=== PATIENT | male | born 1950 | race Caucasian/White ===

== ENCOUNTER 2020-10-03 13:21 | Outpatient (CLI) | payer MEDICARE, SELFPAY ==
--- NOTE | 2020-10-03 | DI.RAD_ITS ---
Exam(s) XR CHEST 2V PA LATERAL EXAM: XR CHEST 2V PA LATERAL CLINICAL HISTORY: COUGH, R05. TECHNIQUE: 2D digital imaging was performed. COMPARISON: No exams were available for comparison FINDINGS: Heart size is normal. The mediastinum is not widened. There is bilateral hyperinflation Lungs are clear. No infiltrates nor pleural effusions. IMPRESSION: Hyperinflation but no acute pulmonary findings. No pleural effusions. DATA REPOSITORY: RADIATION DOSE DELIVERED:
== END 2020-10-03 13:41 ==
PROVIDERS: Visit Provider Physician Assistant Medical
DX: R91.8 Other nonspecific abnormal finding of lung field (principal)
CPT/HCPCS: 71046

== ENCOUNTER 2020-10-03 14:18 | Outpatient (REF) | payer MEDICARE, SELFPAY ==
[2020-10-04 15:23] LABS: COVID-19 RT-PCR UVMMC Result Negative (Negative)
== END 2020-10-03 14:19 | disposition home or self-care (01) ==
LOC: LBN 14:18
PROVIDERS: Visit Provider Physician Assistant Medical
DX: Z20.822 Contact with and (suspected) exposure to COVID-19 (principal); J06.9 Acute upper respiratory infection, unspecified
CPT/HCPCS: U0003; U0005

== ENCOUNTER 2020-10-29 21:29 | Inpatient (IN) | payer MEDICARE, SELFPAY ==
--- NOTE | 2020-10-29 21:24 | HPE_ITS ---
Date of service: 10/29/20 Time of Service: 21:24 Assessment and Plan Assessment and plan (1) COPD exacerbation: Start date: 10/29/20 Status: Acute Assessment and plan: This is a 70-year-old gentleman chronically on oxygen at home and chronic respiratory failure well compensated presenting with increasing dyspnea and feeling tight with continued tobacco use at home. He was not clearing well enough during his evaluation [facility] [place] [facility] ED and was transferred for observation overnight for continued IV steroids with patient chronically on prednisone daily and more aggressive respiratory treatment. Imaging did not reveal infiltrate. He did not have a fever or elevated WBC. He was placed on doxycycline for possible bronchitis. He is a full code. (2) Hypoxemia: Status: Chronic Assessment and plan: Patient is chronically on O2 low levels with hypercapnia and chronic respiratory failure as stated well comfortable at this time. Continue oxygen supplement at lowest level needed to maintain pulse oximeter above 89%. (3) Chronic respiratory failure with hypercapnia: Status: Chronic Assessment and plan: Well compensated with normal pH but elevated PCO2. Patient's mentation is normal and this is probably his baseline. He does not use positive pressure treatment at home. (4) BPH without obstruction/lower urinary tract symptoms: Status: Chronic Assessment and plan: Continue outpatient medications and straight cath if postvoid residual is greater than 400 cc by bladder scan. (5) Tobacco use disorder: Status: Chronic Assessment and plan: Long-term patient needs to stop tobacco use and nicotine supplement resolved mostly as needed. History of Present Illness History of Present Illness Chief Complaint: Dyspnea Narrative: This is a 70-year-old gentleman who was seen in the [facility] ED with worsening hypoxemia and shortness of breath with cough which was productive of sputum without change in color. He had no fever or elevated WBC but did not respond well to nebulizer treatments and continued to be dyspneic beyond his baseline warranting observation with no available bed at that facility and being transferred to [facility] for observation. The patient does have bladder outlet obstruction as a chronic problem and is on Eliquis chronically for protein C deficiency since he was 20 years of age. He has a history of DVT. He does have peripheral edema at times and is on diuretics. He also continues to smoke tobacco. He has intermittently on steroids and appears to be on chronic steroid treatment as. He does see pulmonology. Upon presentation he had no fever or change in sputum as mentioned. He had no chest pain or chest pressure. His peripheral edema appears stable. 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 He is chronically on O2 at home. His does work 4 days a week and he does have some need for increased care at home which can be addressed with his primary care. Also with bladder outlet obstruction follow-up with urology near his PCP. Review of Systems Narrative: 13 point review of systems otherwise unrevealing or stable patient chronically ill and chronically having respiratory failure on O2 supplement. He has had no change in mentation. [facility] Medical History (Updated 10/30/20 @ 11:09 by Josh Stephenson) Abdominal pain Blood coagulation disorder BPH without obstruction/lower urinary tract symptoms Chest pain Chronic respiratory failure with hypercapnia Closed fracture of middle and/or proximal phalanx of finger COPD (chronic obstructive pulmonary disease) COPD (chronic obstructive pulmonary disease) with emphysema Depressive disorder Epigastric pain High cholesterol Hypoxemia Impotence Localized edema Low back pain Ophthalmic herpes simplex Pain in joint of left shoulder Tobacco use disorder Social History Smoking/Tobacco Use Status: Former Tobacco Use Quit Date: 10/26/20 Tobacco: How many years used: 50 Smoking risk assessment performed?: Yes Alcohol Intake: current Alcohol Intake frequency: holidays/special occasions only Alcohol type: beer and hard liquor Drug use: Daily Substance use type: marijuana Details: pt states I try to do it once a day but I haven't been able to lately. Do you feel safe at home: Yes Do you feel safe in your relationship?: Yes Meds Allergies and Home Medications Allergies Allergy/AdvReac Type Severity Reaction Status Date / Time No Known Allergies Allergy Unverified 10/29/20 22:55 Home Medications Medication Instructions Recorded Confirmed Type albuterol sulfate 2 puff INHALATION DIRECTED PRN 10/30/20 10/30/20 History apixaban [Eliquis] 5 mg PO BID 10/30/20 10/30/20 History apixaban [Eliquis] 5 mg PO BID 10/30/20 10/30/20 History budesonide-formoterol [Symbicort] 2 puff INHALATION BID 10/30/20 10/30/20 History clonazepam [Klonopin] 0.5 mg PO DIRECTED PRN 10/30/20 10/30/20 History clonazepam [Klonopin] 1 mg PO DIRECTED PRN 10/30/20 10/30/20 History furosemide [Lasix] 40 mg PO DAILY 10/30/20 10/30/20 History ipratropium-albuterol 3 ml INHALATION QID 10/30/20 10/30/20 History nicotine (polacrilex) 4 mg BUCCAL DIRECTED PRN 10/30/20 10/30/20 History prednisone 10 mg PO DIRECTED 10/30/20 10/30/20 History tamsulosin 0.4 mg PO DAILY 10/30/20 10/30/20 History terazosin 4 mg PO QHS 10/30/20 10/30/20 History Exam Narrative Exam Narrative: General: Patient appears older than stated age, thin but not cachectic and in no acute distress. Is alert and oriented at least to person and place. HEENT: Normocephalic, coarsened facial features, eyes with pupils equal and reactive light symmetrically, extraocular movement intact and sclera anicteric. Neck: Supple without JVD. Back: Stooped posture with no CVA tenderness. Lungs: Decreased aeration diffusely with poor inspiratory air movement and prolonged expiratory phase with expiratory wheeze diffusely. No focalizing expiratory rales. No rhonchi. Heart: Regular rate and rhythm with no appreciable murmur gallop. Abdomen: Normal contour, soft nontender to palpation with no palpable hepatosplenomegaly. Bowel sounds positive in all quadrants. Genitalia/rectal: Exam deferred. Extremities: Without clubbing, pitting edema or cyanosis. Peripheral pulses intact. Skin: Pale, warm and dry with normal turgor. Neuro: Cranial nerves II to XII gross intact, no focalizing motor deficits. Psych: Slightly flattened affect but normal mood. No abnormal thought process. Remote and recent memory intact. Results Imaging Additional studies: Troponin negative, BNP normal and lactic acid normal VENOUS PH 7.36 - PCO2 79 critical high TCO2, VENOUS 47 critical high BASE 15.3 WBC 6.0 - RBC 4.18 low HGB 13.7 low HCT 42.2 - MCV 101.0 high MCH 32.8 high MCHC 32.5 - RDW 13.0 - PLT 128 low G/R 99 - BUN 19 - CREA 0.80 - CA 9.2 - NA 140 - K 4.3 - CL 94 low TCO2 >40.0 critical high Imaging Studies: Exam: XR Chest Exam date and time: 10/29/2020 6:52 PM Age: 70 years old Clinical indication: SOB TECHNIQUE: Imaging protocol: XR of the chest. Views: 2 views. COMPARISON: CR XR CHEST 2VW (D) 07/24/2020 10:44 AM FINDINGS: Lungs: Hyperinflated hyperlucent lungs. No infiltrates. Pleural spaces: Unremarkable. No pleural effusion. No pneumothorax. Heart/Mediastinum: Unremarkable. No cardiomegaly. Bones/joints: No aggressive osseous lesions identified. IMPRESSION: No infiltrates or effusions. The lungs are hyperinflated and hyperlucent, likely emphysema. Labs Result diagrams: 10/30/20 07:29 10/30/20 07:29
[2020-10-29 21:52] LABS: Source Nasal/Nares
[2020-10-29 22:09] VITALS: BP 102/61; PULSE 96; RESP 28; TEMP 37.4; O2SAT 98
[2020-10-29 22:45] LABS: COVID-19 PCR Negative (Negative)
[2020-10-30] VITALS (11 sets, daily range): BP systolic 100–121; BP diastolic 54–68; PULSE 75–96; RESP 4–20; TEMP 36.6–37.5; O2SAT 94–99
[2020-10-30] MEDS: Albuterol/Ipratropium 3 ML UPD VIAL UPD ×4 (00:26→22:36)
[2020-10-30] MEDS: methylPREDNISolone SUCC 125 MG VIAL IVP ×4 (00:26→22:36)
[2020-10-30] MEDS: DOXYCYCLINE 100 MG in Normal Saline 100 ML IVPB ×3 (00:27→22:37)
[2020-10-30] MEDS: Normal Saline 500 ML 30 ML IV ×2 (00:43→22:38)
[2020-10-30] MEDS: Terazosin 2 MG CAP 4 MG PO ×2 (03:12→22:37)
[2020-10-30] MEDS: Normal Saline Flush 10 ML SYR IVP ×4 (06:33→22:37)
[2020-10-30 07:39] LABS: Abs Immature Grans 0.01 10^3/uL (0.0-0.06); Absolute Lymphocyte Count 0.14 10^3/uL (1.2-3.4); Absolute Monocyte Count 0.04 10^3/uL (0.1-0.8); Absolute Neutrophil Count 5.31 10^3/uL (1.2-6.7); HCT 37.8 % (40.0-50.0); HGB 12.5 g/dL (13.5-17.5); Immature Grans % 0.2; Lymphocytes % 2.5; MCH 32.5 pg (27.0-33.0); MCHC 33.1 % (32.0-36.0); MCV 98.2 fL (80-95); MPV 9.5 fL (8.0-11.0); Monocytes % 0.7; Neutrophils % 96.6; Nucleated RBC 0 %; Platelet Count 163 10^3/uL (130-400); RBC 3.85 10^6/uL (4.36-5.78); RDW 12.4 % (11.8-14.1); RDW-SD 44.5 fL
[2020-10-30 07:55] LABS: ALT 29 U/L (16-63); AST 11 U/L (15-37); Alkaline Phosphatase 44 U/L (46-116); BUN 18 mg/dL (7-18); Bilirubin, Total 0.5 mg/dL (0.2-1.0); CREATININE 0.7 mg/dL (0.70-1.30); Calcium 8.7 mg/dL (8.5-10.1); Chloride 103 mmol/L (98-107); Glucose 147 mg/dL (74-106); Potassium 4.3 mmol/L (3.5-5.1); Sodium 142 mmol/L (136-145); Total Protein 5.8 g/dL (6.4-8.2)
[2020-10-30] MEDS: Furosemide 40 MG TAB PO (08:15)
[2020-10-30] MEDS: Tamsulosin 0.4 MG CAPCR PO (08:16)
[2020-10-30] MEDS: Apixaban 5 MG TAB PO ×2 (08:16→19:47)
--- NOTE | 2020-10-30 09:40 | INITIAL_ITS ---
- If Service Date Differs Date of service: 10/30/20 Time of Service: 09:40 Care Management Initial Assess REASON FOR HOSPITALIZATION:: COPD exacerbation PAST MEDICAL HISTORY/PAST SURGICAL HISTORY:: Medical History (Updated 10/29/20 @ 21:29 by Josh Stephenson). Chronic respiratory failure with hypercapnia. COPD (chronic obstructive pulmonary disease) with emphysema. Hypoxemia PREVIOUS FUNCTIONAL STATUS/SOCIAL/FAMILY SUPPORTS:: Marc lives in a second floor apartment in [place], [place] with his Tracy. They have one child, a daughter, who lives locally and is supportive. 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 He is fairly independent with ADLs howebver he is limited by his oxygen needs. CURRENT FUNCTIONAL STATUS:: Marc was sitting up in bed when CM came to see hime. He was pleasant and agreeable to conversation. Marc shared that he is not able to get around too well because of his oxygen needs. He stated that sometimes he will sit and wait for an hour before he can muster up the energy to walk 10 feet to a different location. He does not currently use a walker but verbalized that he thought it might be helpful. CM also discussed advance directives with Marc. He asked CM for a blank copy which he may need assistance completeing, which CM will provide. ADVANCE DIRECTIVES:: none on file. requested and provided with a copy of [place] AD forms Has patient been provided with info about the portal/API?: Yes Did the patient sign up for the portal?: No CODE STATUS:: Full Code INSURANCE COVERAGE / FINANCIAL ISSUES:: Medicare CURRENT HOME/COMMUNITY SERVICES/EQUIPMENT:: home oxygen PRIMARY CARE PHYSICIAN:: PCP in [place] POTENTIAL DISCHARGE NEEDS:: Follow up with PCP and discharge plan of care PATIENT/FAMILY EDUCATION NEEDS:: Review of discharge instructions, medications, limitations, follow up plan,[facility] Me [employer] TRANSPORTATION:: via private vehicle with family PLAN:: Marc will likely return home with no new services. He will follow up with his community providers and plan of care and transport with family. CM will continue to support Marc and assess for discharge planning needs.
--- NOTE | 2020-10-30 11:59 | PGE_ITS ---
Date of Service Date of service: 10/30/20 Time of Service: 11:59 Assessment and Plan Assessment and plan (1) COPD exacerbation: Status: Acute Assessment and plan: doxycycline day 2/5 continue steroid, taper as able. on home O2, He is a full code. (2) Hypoxemia: Status: Chronic Assessment and plan: Patient is chronically on O2 low levels with hypercapnia and chronic respiratory failure as stated well comfortable at this time. Continue oxygen supplement at lowest level needed to maintain pulse oximeter above 89%. (3) Chronic respiratory failure with hypercapnia: Status: Chronic Assessment and plan: Well compensated with normal pH but elevated PCO2. Patient's mentation is normal and this is probably his baseline. He does not use positive pressure treatment at home. (4) BPH without obstruction/lower urinary tract symptoms: Status: Chronic Assessment and plan: Continue outpatient medications and straight cath if postvoid residual is greater than 400 cc by bladder scan. (5) Tobacco use disorder: Status: Chronic Assessment and plan: Long-term patient needs to stop tobacco use, refusing nicotine supplement (6) DVT prophylaxis: Status: Acute Assessment and plan: anticoagulated on apixaban (7) Discharge planning issues: Status: Acute Assessment and plan: case management following anticipate a discharge to home tomorrow. discussed with DR Church Subjective Subjective Patient reports: no new complaints, feels better, tolerating liquids well, tolerating a regular diet, voiding w/o difficulty and afebrile Interval history since last seen: reports no significant change in symptoms Exam Const General: cooperative (older appearing than stated age), disheveled, frail appearing and ill appearing chronically Nutritional Appearance: average body habitus Orientation: alert, awake and oriented x3 [facility] Head: normal to inspection, normocephalic and atraumatic Mouth: moist mucous membranes abnormal (dry, no exudates) Resp Effort & Inspection: normal respiratory effort Auscultation: diminished lung sounds and wheezes Cardio Rate: regular rate Rhythm: regular rhythm GI Inspection: normal to inspection Palpation: soft Auscultation: normal bowel sounds Skin General skin exam: no rashes or lesions noted Neuro General: patient alert, patient awake, patient oriented x3 and no focal motor deficits Extrem General: normal to inspection and no pedal edema Objective Last Vital Signs Temp 36.7 C 10/30/20 11:23 Pulse 84 10/30/20 11:23 Resp 19 10/30/20 11:23 BP 109/68 10/30/20 11:23 Pulse Ox 96 10/30/20 11:23 Laboratory Results - last 24 hr 10/29/20 10/30/20 10/30/20 21:45 07:29 07:29 WBC 5.50 RBC 3.85 L Hgb 12.5 L Hct 37.8 L MCV 98.2 H MCH 32.5 MCHC 33.1 RDW 12.4 Plt Count 163 MPV 9.5 Immature Gran % 0.2 Neutrophils % 96.6 Lymphocytes % 2.5 Monocytes % 0.7 Eosinophils % 0.0 Basophils % 0.0 Nucleated RBC % 0 Absolute Neutrophils 5.31 Absolute Lymphocytes 0.14 L Absolute Monocytes 0.04 L Absolute Eosinophils 0.00 Absolute Basophils 0.00 Sodium 142 Potassium 4.3 Chloride 103 Carbon Dioxide 37.0 H Anion Gap 2.0 L BUN 18 Creatinine 0.7 Estimated GFR/1.73 m2 >= 60.00 Glucose 147 H Calcium 8.7 Total Bilirubin 0.5 AST 11 L ALT 29 Alkaline Phosphatase 44 L Total Protein 5.8 L Albumin 3.0 L COVID-19 Source Nasal/Nares SARS-CoV-2 (PCR) Negative
--- NOTE | 2020-10-30 14:27 | IN_ITS ---
Date of service: 10/30/20 Time of Service: 13:50 PT Notes Visit Reasons: Exacerbation COPD, Hypoxemia, Chronic Resp failure Inpatient Physical Therapy Evaluation Date: 10/30/20 Referring Doctor: Tracy Peralta NP PT Orders: PT CONSULT: limited ability to ambulate Precautions: standard Patient Profile/Admitting Diagnosis: Patient admitted for medical management of COPD exacerbation. PT consult requested for assessment of mobility. PMHX: Abdominal pain Blood coagulation disorder BPH without obstruction/lower urinary tract symptoms Chest pain Chronic respiratory failure with hypercapnia Closed fracture of middle and/or proximal phalanx of finger COPD (chronic obstructive pulmonary disease) COPD (chronic obstructive pulmonary disease) with emphysema Depressive disorder Epigastric pain High cholesterol Hypoxemia Impotence Localized edema Low back pain Ophthalmic herpes simplex Pain in joint of left shoulder Tobacco use disorder Social History/Home Situation: Patient lives with his in a second floor apartment. and daughter are present at time of evaluation, and report that he struggles to manage the stairs in/out of home. He leaves the house only to grocery shop, where he uses a motorized cart. States that he walks only from his bed to his computer chair in the apartment, estimating about 10 feet. Generally uses a urinal throughout the day. Although he walks independently, he admits that he walks very little because of his breathing. Equipment Owned/DME: none Subjective: Patient states that he's feeling a little better. He's agreeable to PT consult. and daughter are present for evaluation and are supportive throughout. They deny history of falls. Objective: General Observation: Resting in bed with supplemental O2 via nasal cannula at 1LPM. Shortness of breath noted at rest, increased with all functional movements. Mental Status: A&Ox3. Pleasant and cooperative. Pain: denies Vital Signs: SaO2 at 94% at rest, and remaining in 90s with activity, despite severe KIRK. HR 92 at rest, increasing to 105 in standing position. ROM: Right Upper Extremity: WFL Left Upper Extremity: WFL Right Lower Extremity: WFL Left Lower Extremity: WFL Strength: Right Upper Extremity: Shoulder flexion 3/5 or greater. Biceps 4/5. Triceps 4- /5. Left Upper Extremity: Shoulder flexion 3/5 or greater. Biceps 4/5. Triceps 4-/5. Right Lower Extremity: Hip flexion 4/5. Quads 4/5. Ankle DF 4+/5. Left Lower Extremity:Hip flexion 4/5. Quads 4/5. Ankle DF 4+/5. Bed Mobility/Transfers: supine-sit: supervision sit-supine: supervision sit-stand: supervision stand-sit: supervision Gait: Unable due to severe KIRK upon standing (see treatment section below) Balance: Static Sitting: normal Dynamic Sitting: normal Static Standing: good Dynamic Standing: good Special Tests: Mobility Limitations Standardized Measure [facility] 6 clicks Basic Mobility Inpatient Short Form: Raw Score: 18 CMS Score: 47% deficit Informed Consent/Education: Patient instructed in purpose of PT consult and plan of care. Treatment: Today's session consisted of evaluation, followed by instruction in diaphragmatic breathing exercises. Patient was also educated on self-monitoring with modified ADRIAN scale, and was provided with paper copy to reference. He completed 30 seconds of seated marching with cues for breathing techniques, where he rates his breathing at 5 on the ADRIAN scale. He stands with CGA to toilet for 90 seconds, after which breathing is rated at 7 on ADRIAN (although SaO2 remains in mid-90s throughout). He demonstrates significantly increased KIRK at this time, and requires 2 minutes to recover. Deferred on further activity at this time, and patient was assisted back to bed, call botello in place. Assessment: Patient is a 70 year old male referred to physical therapy services with the diagnosis of COPD exacerbation. Patient presents with clinical signs and symptoms consistent with mobility deficits related to acute medical issues, in addition to chronic COPD. Although patient demonstrates relatively good balance and has no fall history, I suspect he'll benefit from use of rollator walker to maximize his functional ambulation and improve his participation in daily tasks at home. He currently limits activity due to fear of shortness of breath, and is no longer walking even to the bathroom. Will assess for safety with rollator tomorrow. He currently demonstrates the following impairment level findings: 1. Decreased UE/LE strength 2. Decreased activity tolerance 3. Fear avoidance behaviors Impairments are contributing to the following functional limitations: 1. Unable to ambulate household distances 2. unable to manage stairs 3. unable to transfer without severe KIRK Patient is assessed as Moderate [id number] complexity based on the following: History: 70 year old male with COPD exacerbation. Complicating factors include ongoing tobacco use, multiple stairs at home, fear avoidance behaviors, and extensive medical history as noted above. Examination: functional limitations as noted above Presentation: evolving Decision Making: moderate complexity Goals: Goals X1 week 1. Supine-Sit : independent 2. Sit-Supine: independent 3. Sit-Stand : independent 4. Stand-Sit: independent 5. Bed-Chair : independent 6. Chair-Bed : independent 7. Gait : independent with rollator walker x 25' Plan of Care/Treatment Plan: 1-2x/day, 7 days/week x 1 week. Plan of care has been reviewed with the DEMOLITION CRANE OPERATOR providing the service under Physical Therapy direction. Initiate Physical Therapy intervention for strengthening, bed mobility, transfers, gait, stairs, balance training, use of assistive device. DISCHARGE RECOMMENDATIONS: home, with recommendation of PT and rollator walker TREATMENT CODE/TIME: 1:50-2:15 ([id number]) Florinda Rodriguez, PT, DPT [facility]
[2020-10-30] MEDS: Acetaminophen 325 MG TAB 650 MG PO (19:46)
[2020-10-30] MEDS: Docusate Sodium 100 MG CAP PO (19:47)
[2020-10-30] MEDS: Nicotine 21 MG/24 HR PATCH TD (22:53)
[2020-10-30] MEDS: clonazePAM 0.5 MG TAB PO (22:54)
[2020-10-31] VITALS (10 sets, daily range): BP systolic 108–130; BP diastolic 62–75; PULSE 74–97; RESP 4–21; TEMP 36.3–37; O2SAT 94–98
[2020-10-31] MEDS: Albuterol/Ipratropium 3 ML UPD VIAL UPD ×4 (03:12→22:06)
[2020-10-31] MEDS: Lidocaine 2% Jelly 11 ML SYR UR (03:12)
[2020-10-31] MEDS: Acetaminophen 325 MG TAB 650 MG PO ×2 (04:26→20:36)
[2020-10-31] MEDS: methylPREDNISolone SUCC 125 MG VIAL IVP (06:20)
[2020-10-31] MEDS: Normal Saline Flush 10 ML SYR IVP ×2 (06:20→22:04)
[2020-10-31] MEDS: Apixaban 5 MG TAB PO ×2 (07:44→20:36)
[2020-10-31] MEDS: Tamsulosin 0.4 MG CAPCR PO (07:44)
[2020-10-31] MEDS: clonazePAM 0.5 MG TAB PO ×2 (07:44→20:36)
[2020-10-31] MEDS: Furosemide 40 MG TAB PO (07:44)
[2020-10-31] MEDS: Albuterol 2.5 MG/3 ML INH SOLN VIAL UPD (08:25)
--- NOTE | 2020-10-31 10:31 | PDOC.CMPRO ---
- If Service Date Differs Date of service: 10/31/20 Time of Service: 10:31 Care Management Progress Note S/O:Marc was sitting up in bed when CM met with him. He appeared to be in good spirits and shared that he had done well with PT. Marc informed CM that he had had difficulty breathing this morning but was feeling much better at the time of the visit. Macr also gave CM what he described as his Medicaid card and prescription drug card which CM faxed to [facility] to enter into his EMR. A: Marc is a 70 year old man admitted on 10/29/20 with exacerbation of COPD P:Marc will likely return home with no new services. He will follow up with his community providers and plan of care and transport with family. CM will continue to support Marc and assess for discharge planning needs.
[2020-10-31] MEDS: DOXYCYCLINE 100 MG in Normal Saline 100 ML IVPB ×2 (11:15→22:06)
--- NOTE | 2020-10-31 11:42 | RESPIRATORY ---
Pt stated that he is on 2lpm oxygen that was prescribed through his PCP Hillary Fierro ([phone]). Spoke with nurse and was informed that Pt was prescribed portable oxygen concentrator through [facility]. [facility] contacted and was told prescription was discarded due to lack of information. Unknown source of Patient's Oxygen concentrator and Portable consecrator.
--- NOTE | 2020-10-31 12:35 | PT.INTREAT ---
Date of service: 10/31/20 Time of Service: 10:00 PT Notes Visit Reasons: Exacerbation COPD, Hypoxemia, Chronic Resp failure Inpatient Physical Therapy Treatment Note [facility] Date: 10/31/2020 PRECAUTIONS: Significant KIRK SUBJECTIVE: Marc states that he feels a little better , but does not feel well enough to go home. Post session, he reports that he likes using the 4WW, and would like to get one for home use. OBJECTIVE: PAIN: No c/o pain BED MOBILITY/TRANSFERS Supine-sit: I Sit-supine: I Sit-stand: I Stand-sit: I GAIT Assistive Device: 4WW Weight bearing: Full Assist: S Distance: 40' x2 + 10' x2 in a.m.; 20' x3 in p.m. Deviation: Wheelchair follow, KIRK, seated rest x2 VITALS: SaO2: 90-94% on RA with gait training (a.m. session performed in collaboration with RT for oxygen management) STAIRS: Up/down 3x4 and 2x6 using B rails and a step-over pattern with supervision. Several stand rests due to KIRK. 4WW TRAINING: Patient was instructed in safe and appropriate use of 4WW, including locks, brakes, and seat for seated rests. Patient demonstrates good understanding and safe use of all components of 4WW. ASSESSMENT: Patient tolerated session with significantly increased KIRK. He was able to tolerate a progression in gait distance with 4WW support and SBA, although requires seated rests due to KIRK. He demonstrates independence with pacing, and also demonstrates good understanding of safe use of 4WW following training. PLAN: Continue with global conditioning and short distance gait training with 4WW support. TREATMENT CODE/TIME: Session 1: 35 minutes; [id number] x2 (10:00) Session 2: 15 minutes; [id number] (13:10)
[2020-10-31] MEDS: methylPREDNISolone SUCC 125 MG VIAL 62.5 MG IVP ×2 (14:28→22:05)
--- NOTE | 2020-10-31 15:17 | W.PM.PROGNOT ---
Date of Service Date of service: 10/31/20 Time of Service: 15:17 Assessment and Plan Assessment and plan (1) COPD exacerbation: Status: Acute Assessment and plan: doxycycline day 3/5 continue steroid, taper as able. on home O2, He is a full code. (2) Hypoxemia: Status: Chronic Assessment and plan: Patient is chronically on O2 low levels with hypercapnia and chronic respiratory failure as stated well comfortable at this time. Continue oxygen supplement at lowest level needed to maintain pulse oximeter above 89%. (3) Chronic respiratory failure with hypercapnia: Status: Chronic Assessment and plan: Well compensated with normal pH but elevated PCO2. Patient's mentation is normal and this is probably his baseline. He does not use positive pressure treatment at home. (4) BPH without obstruction/lower urinary tract symptoms: Status: Chronic Assessment and plan: Continue outpatient medications and straight cath if postvoid residual is greater than 400 cc by bladder scan. (5) Tobacco use disorder: Status: Chronic Assessment and plan: Long-term patient needs to stop tobacco use, refusing nicotine supplement (6) DVT prophylaxis: Status: Acute Assessment and plan: anticoagulated on apixaban (7) Discharge planning issues: Status: Acute Assessment and plan: case management following anticipate a discharge to home tomorrow. discussed with DR Church Subjective Subjective Patient reports: no new complaints, feels better, tolerating liquids well, tolerating a regular diet, shortness of breath and afebrile Exam Const General: cooperative (older appearing than stated age), disheveled, frail appearing and ill appearing chronically Nutritional Appearance: average body habitus Orientation: alert, awake and oriented x3 [facility] Head: normal to inspection, normocephalic and atraumatic Mouth: moist mucous membranes abnormal (dry, no exudates) Resp Effort & Inspection: normal respiratory effort Auscultation: diminished lung sounds and wheezes Cardio Rate: regular rate Rhythm: regular rhythm GI Inspection: normal to inspection Palpation: soft Auscultation: normal bowel sounds Skin General skin exam: no rashes or lesions noted Neuro General: patient alert, patient awake, patient oriented x3 and no focal motor deficits Extrem General: normal to inspection and no pedal edema Objective Last Vital Signs Temp 36.3 C L 10/31/20 11:41 Pulse 86 10/31/20 15:11 Resp 19 10/31/20 15:11 BP 115/72 10/31/20 11:41 Pulse Ox 98 10/31/20 15:11
--- NOTE | 2020-10-31 17:30 | RESPIRATORY ---
RT accompanied PT and observed Pt maintain an SpO2 of 90% or greater on RA with ambulation.
[2020-10-31] MEDS: Budesonide/Formoterol 80/4.5 6.9 GM 60 PUFF INH IH (20:35)
[2020-10-31] MEDS: Terazosin 2 MG CAP 4 MG PO (22:05)
[2020-11-01] VITALS (9 sets, daily range): BP systolic 112–148; BP diastolic 67–71; PULSE 71–118; RESP 4–28; TEMP 36–37; O2SAT 91–97
[2020-11-01] MEDS: methylPREDNISolone SUCC 125 MG VIAL 62.5 MG IVP (05:04)
[2020-11-01] MEDS: Albuterol/Ipratropium 3 ML UPD VIAL UPD ×4 (05:05→22:16)
[2020-11-01] MEDS: Normal Saline Flush 10 ML SYR IVP (05:05)
[2020-11-01] MEDS: Budesonide/Formoterol 80/4.5 6.9 GM 60 PUFF INH IH ×2 (08:13→19:57)
[2020-11-01 08:37] LABS: Abs Immature Grans 0.06 10^3/uL (0.0-0.06); Absolute Lymphocyte Count 0.13 10^3/uL (1.2-3.4); Absolute Monocyte Count 0.19 10^3/uL (0.1-0.8); HCT 41.4 % (40.0-50.0); HGB 13.5 g/dL (13.5-17.5); Immature Grans % 0.5; Lymphocytes % 1.1; MCH 32.6 pg (27.0-33.0); MCHC 32.6 % (32.0-36.0); MPV 9.5 fL (8.0-11.0); Monocytes % 1.6; Neutrophils % 96.8; Nucleated RBC 0 %; Platelet Count 156 10^3/uL (130-400); RBC 4.14 10^6/uL (4.36-5.78); RDW 12.8 % (11.8-14.1); RDW-SD 47.3 fL; WBC 12.18 10^3/uL (4.4-10.8)
[2020-11-01 08:38] LABS: Absolute Neutrophil Count 11.79 10^3/uL (1.2-6.7)
[2020-11-01 08:49] LABS: Anion Gap 3.1 mmol/L (3-11); BUN 26 mg/dL (7-18); CO2 35.9 mmol/L (21.0-32.0); CREATININE 0.8 mg/dL (0.70-1.30); Calcium 8.9 mg/dL (8.5-10.1); Chloride 106 mmol/L (98-107); Glucose 142 mg/dL (74-106); Potassium 4.4 mmol/L (3.5-5.1); Sodium 145 mmol/L (136-145)
[2020-11-01] MEDS: Apixaban 5 MG TAB PO ×2 (08:52→19:58)
[2020-11-01] MEDS: Furosemide 40 MG TAB PO (08:52)
[2020-11-01] MEDS: Tamsulosin 0.4 MG CAPCR 0.8 MG PO (08:52)
[2020-11-01] MEDS: DOXYCYCLINE 100 MG in Normal Saline 100 ML IVPB ×2 (09:54→21:45)
[2020-11-01] MEDS: Azithromycin 250 MG TAB 500 MG PO (09:55)
--- NOTE | 2020-11-01 10:43 | PUCON_ITS ---
General Date Of Service Date of service: 11/01/20 Time of Service: 11:30 Requesting physician: Dejah Castro Reason for Consult: COPD Exacerbation Assessment and Plan Assessment and plan (1) COPD exacerbation: Status: Acute (2) Acute and chronic respiratory failure, unspecified whether with hypoxia or hypercapnia: Status: Acute Qualifiers: Respiratory failure complication: hypoxia and hypercapnia Qualified Code(s): J96.21 - Acute and chronic respiratory failure with hypoxia; J96.22 - Acute and chronic respiratory failure with hypercapnia (3) Tobacco use disorder: Status: Chronic Assessment and plan: This is a 70-year-old man with severe COPD who has never been followed by a deburr operator. He is currently on Symbicort high-dose ICS for maintenance which is not appropriate for his lung disease. He has tried Trelegy in the past however did not like it and so went back to Symbicort. He can remain on Symbicort but should be on low-dose ICS and he should have LAMA therapy initiated (Spiriva). He also continues to smoke and does not seem willing to quit at this time despite understanding it is making his breathing worse. There are some more advanced treatment options that can be offered to him given his severe lung disease however he will need a more formal pulmonary assessment as an outpatient to assess which options are best for him. With regard to his steroid regimen 60 mg twice daily is an extremely high dose. There has not been shown any benefit of prescribing more than 40 to 50 mg daily for COPD exacerbations. Given his severe respiratory status he should be discharged on a prolonged taper. COPD Exacerbation - recommend decreasing Symbicort from 160-4.5 to 80-4.5 dosing, 2 puffs bid - use spacer and rinse mouth after use - recommend adding Spiriva to his regimen - recommend continue Duonebs 3-4 times per day scheduled - continue albuterol HFA prn - recommend prednisone 40 mg for a total of 7 days, followed by 30 mg for 5 days, 20 mg for 4 days, 10 mg for 4 days, 5 mg for 4 days. - I have set up follow up for him in my clinic for next month Chronic hypoxic and hypercapnic respiratory failure - O2 as needed to maintain a saturation of 88-92% - I will assess his need for nocturnal NIV as an outpatient Current Smoker - would benefit from smoking cessation specialists at [facility] History of Present Illness History of Present Illness Chief Complaint: chest tightness Narrative: This is a 70-year-old man with a medical history of chronic hypoxic respiratory failure with hypercapnia, COPD and active smoking who is currently admitted for a COPD exacerbation. Per his medical record he is currently maintained on as needed albuterol, Symbicort 160?4.5 and DuoNebs. He was admitted on October 29 and treated with a prednisone taper as well as doxycycline for concern of bronchitis. States he feels as though his breathing is much improved since being admitted and is anxious to go home. He continues to smoke although he understands that this worsens his breathing. He states that his primary doctors have tried to get him to do low-dose lung cancer screening however he is always refused since quotation I know I am going to from the breathing before cancer will kill me. I do not currently have access to all of the imaging and labs that he has received in [place]. Consults Consult date: 11/01/20 Review of Systems All systems reviewed & are unremarkable except as noted in HPI and below Constitutional Constitutional: Reports lethargy Cardiovascular Cardiovascular: Reports dyspnea and Reports dyspnea on exertion Respiratory Respiratory: Reports chest congestion, Reports cough, Reports dyspnea, Reports dyspnea on exertion and Reports wheezing Allergic/Immunologic Allergic/Immunologic: Reports wheezing [facility] Medical History Abdominal pain Blood coagulation disorder BPH without obstruction/lower urinary tract symptoms Chest pain Chronic respiratory failure with hypercapnia Closed fracture of middle and/or proximal phalanx of finger COPD (chronic obstructive pulmonary disease) COPD (chronic obstructive pulmonary disease) with emphysema Depressive disorder Epigastric pain High cholesterol Hypoxemia Impotence Localized edema Low back pain Ophthalmic herpes simplex Pain in joint of left shoulder Tobacco use disorder Social History Smoking/Tobacco Use Status: Former Tobacco Use Quit Date: 10/26/20 Tobacco: How many years used: 50 Smoking risk assessment performed?: Yes Alcohol Intake: current Alcohol Intake frequency: holidays/special occasions only Alcohol type: beer and hard liquor Drug use: Daily Substance use type: marijuana Details: pt states I try to do it once a day but I haven't been able to lately. Do you feel safe at home: Yes Do you feel safe in your relationship?: Yes Visit Medication and Allergies Active Medications Generic Name Dose Route Start Last Admin Trade Name Freq PRN Reason Stop Dose Admin Acetaminophen 650 mg 10/29/20 21:35 10/31/20 20:36 Acetaminophen 325 Mg Tab PO 650 mg Q4H PRN PRN Administration Al Hydrox/Mg Hydrox/Simethicone 30 ml 10/29/20 21:35 Mylanta Suspension 30 Ml Cup PO Q2H PRN PRN Albuterol Sulfate 2.5 mg 10/29/20 21:29 10/31/20 08:25 Albuterol 2.5 Mg/3 Ml Inh Soln Vial UPD 2.5 mg Q2H PRN PRN Administration Albuterol/Ipratropium 3 ml 10/29/20 22:00 11/01/20 10:34 Albuterol/Ipratropium 3 Ml Upd Vial UPD 3 ml Q6H LESLEY Administration Apixaban 5 mg 10/30/20 08:30 11/01/20 08:52 Apixaban 5 Mg Tab PO 5 mg BID LESLEY Administration Azithromycin 250 mg 11/02/20 08:30 Azithromycin 250 Mg Tab PO DAILY LESLEY Budesonide/Formoterol Fumarate 2 puff 10/31/20 20:00 11/01/20 08:13 Budesonide/Formoterol 80/4.5 6.9 Gm 60 Puff Inh IH 2 puffs BID LESLEY Administration Clonazepam 0.5 mg 10/30/20 09:09 10/31/20 20:36 Clonazepam 0.5 Mg Tab PO 0.5 mg BID PRN PRN Administration Device 1 each 10/31/20 16:00 Inhaler, Assist Device MC DIRECTED LESLEY Dimethicone/Zinc Oxide 0 gm 10/29/20 21:29 David Protect Cream 142 Gm Tube TP PRN PRN Docusate Sodium 100 mg 10/29/20 21:35 10/30/20 19:47 Docusate Sodium 100 Mg Cap PO 100 mg TID PRN PRN Administration Furosemide 40 mg 10/30/20 08:30 11/01/20 08:52 Furosemide 40 Mg Tab PO 40 mg DAILY LESLEY Administration Sodium Chloride 500 mls @ 0 mls/hr 10/29/20 21:29 10/31/20 02:56 Saline 500ml Bag IV 0 mls/hr PRN PRN Infusion As Directed Doxycycline Hyclate 100 mg/ 100 mls @ 100 mls/hr 10/29/20 22:00 11/01/20 09:54 Sodium Chloride IVPB 100 mls/hr Q12H LESLEY Administration IV Miscellaneous Supplies 1 each 10/29/20 21:30 Iv Access IV DIRECTED [facility] Magnesium Hydroxide 30 ml 10/29/20 21:35 Milk Of Magnesia 30 Ml Cup PO DAILY PRN PRN Nicotine 21 mg 10/29/20 21:35 10/30/20 22:53 Nicotine 21 Mg/24 Hr Patch TD 21 mg DAILY PRN PRN Administration Polyethylene Glycol 17 gm 10/29/20 21:35 Polyethylene Glycol 3350 17 Gm Packet PO DAILY PRN PRN Constipation Prednisone 10 mg 11/01/20 10:00 Prednisone 10 Mg Tab PO DIRECTED [facility] Prednisone 60 mg 11/01/20 20:00 Prednisone 20 Mg Tab PO BID [facility] Sodium Chloride 0 ml 10/29/20 21:29 11/01/20 05:05 Normal Saline Flush 10 Ml Syr IVP 20 ml PRN PRN Administration Tamsulosin HCl 0.8 mg 11/01/20 08:30 11/01/20 08:52 Tamsulosin 0.4 Mg Capcr PO 0.8 mg DAILY LESLEY Administration Terazosin HCl 4 mg 10/29/20 22:00 10/31/20 22:05 Terazosin 2 Mg Cap PO 4 mg HS LESLEY Administration Allergies No Known Allergies Allergy (Unverified 10/29/20 22:55) Exam Const General: no acute distress Nutritional Appearance: well nourished [facility] Head: normocephalic Ears: external ears normal and no periauricular adenopathy General nose exam: nasal mucous membranes and turbinates normal Face and sinus: sinuses nontender Mouth: oropharynx normal and moist mucous membranes Teeth and gingiva: dentition normal Eyes General: appearance normal, both eyes and all related structures Pupils: PERRL Neck Neck: normal visual inspection and no lymphadenopathy Chest Chest: normal inspection of the chest Resp Effort & Inspection: normal respiratory effort Auscultation: no rales, no rhonchi and wheezes expiratory wheezes, lower bilaterally and upper bilaterally Cardio Rate: regular rate Rhythm: regular rhythm Heart Sounds: S1 normal, S2 normal and no murmurs Pulses: radial pulses present bilaterally GI Inspection: normal to inspection Palpation: soft Skin General skin exam: no rashes or lesions noted Neuro General: patient alert, patient awake and patient oriented x3 Extrem General: no clubbing, cyanosis or edema Psych Mental Status: mental status grossly normal Affect: normal affect Attitude: cooperative Results Last Vital Signs Temp 36.0 C L 11/01/20 07:49 Pulse 96 H 11/01/20 10:34 Resp 18 11/01/20 10:34 BP 115/67 11/01/20 07:49 Pulse Ox 95 11/01/20 10:34 Labs Result diagrams: 11/01/20 08:30 11/01/20 08:30 Labs: Laboratory Results - last 24 hr 11/01/20 11/01/20 08:30 08:30 WBC 12.18 H RBC 4.14 L Hgb 13.5 Hct 41.4 MCV 100.0 H MCH 32.6 MCHC 32.6 RDW 12.8 Plt Count 156 MPV 9.5 Immature Gran % 0.5 Neutrophils % 96.8 Lymphocytes % 1.1 Monocytes % 1.6 Eosinophils % 0.0 Basophils % 0.0 Nucleated RBC % 0 Absolute Neutrophils 11.79 H Absolute Lymphocytes 0.13 L Absolute Monocytes 0.19 Absolute Eosinophils 0.00 Absolute Basophils 0.00 Sodium 145 Potassium 4.4 Chloride 106 Carbon Dioxide 35.9 H Anion Gap 3.1 BUN 26 H Creatinine 0.8 Estimated GFR/1.73 m2 >= 60.00 Glucose 142 H Calcium 8.9
--- NOTE | 2020-11-01 11:08 | CMPROGNOTE_ITS ---
- If Service Date Differs Date of service: 11/01/20 Time of Service: 11:08 Care Management Progress Note S/O:Marc was sitting up in bed when CM met with him. He stated that he is feeling better and that his breathing has improved. Today Marc made comments to his nurse that indicated that he had considered suicide on and off over the past few months. The crisis screener from [facility] was called to evaluate Marc. It was determined that he is depressed and has had thoughts of suicide but that he has no clear plan. He acknowledged feeling guilty about even considering it. He stated his reason was that he does not have any life insurance and he really does not want to leave his family with financial burdens. Marc does have an accidental policy which, if he committed suicide but it appeared accidental, would pay the benefit to his family. Marc believes that he may not live much longer because of his lung disease. CM met with Marc with the provider and had further discussion. An antidepressant was ordered after [facility] agreed, but he was unwilling to consider voluntary psychiatric treatment. CM met separately with Marc after both meetings and he was able to contract for safety. He stated clearly that he would not do anything to hurt himself, assuring CM that it was really only a passing thought. A: Marc is a 70 year old man admitted on 10/29/20 with exacerbation of COPD P:Marc will likely return home with new home health services for PT and nursing. He will follow up with his community providers and plan of care and transport with family. Marc did state that he would like a new provider in this area and was provided with information about area practices. CM will continue to support Marc and assess for discharge planning needs.
--- NOTE | 2020-11-01 11:20 | PCNE_ITS ---
Date of service: 11/01/20 Time of Service: 11:15 History of Present Illness Narrative: Marc is a very pleasant 70 year old man with a past medical history significant for COPD, acute and chronic respiratory failure, chronically on oxygen, Protein C deficiency on anticoagulation, current smoker, BPH, who is currently in the hospital being treated for COPD exacerbation. He is not sure if he has ever had an echocardiogram. Palliative care was consulted to discuss goals of care and advanced care planning. He reports that he is feeling better than when he presented to the ED. He init manoj presented to the [facility] ED and was transferred to [facility] for admission due to no beds available in [place]. Marc reports that he has lost about 50 pounds over the last year. He doesn't have much of an appetite. His activity is severely limited by his breathing. He spends most of his time playing games on his computer or watching movies/shows. He states, I want to keep going so I can save enough money for my final expenses, I don't want to leave my hanging. He is tearful while having this discussion. He spoke with nursing earlier about maybe wanting to enroll in hospice. We talked briefly about goals. He would want to be home if he was at the end of his life. We discussed CODE STATUS, at this point, he wants to remain a FULL CODE. We will continue to discuss CODE status at his outpatient follow up. He lives in [place], [place] with his , Tracy. He has one daughter that is in her 40s and lives in [place]. He has [address] Hernandez, Infirmary Attendant came in to see Marc during the visit and will follow up with him as an outpatient. He is interested in what she may have to offer him. Assessment and Plan Assessment and plan (1) COPD exacerbation: Status: Acute (2) Tobacco use disorder: Status: Chronic (3) Acute and chronic respiratory failure, unspecified whether with hypoxia or hypercapnia: Status: Acute Qualifiers: Respiratory failure complication: hypoxia and hypercapnia Qualified Code(s): J96.21 - Acute and chronic respiratory failure with hypoxia; J96.22 - Acute and chronic respiratory failure with hypercapnia (4) Palliative care patient: Status: Acute Assessment and plan: Marc is a very pleasant 70 year old man with a past medical history significant for COPD, acute and chronic respiratory failure, chronically on oxygen, Protein C deficiency on anticoagulation, current smoker, BPH, who is currently in the hospital being treated for COPD exacerbation. He is not sure if he has ever had an echocardiogram. Palliative care was consulted to discuss goals of care and advanced care planning. He is feeling better overall. His goal is to save enough money for his final expenses so he does not leave his with the bill. He wants to be home at the end of life. He is interested in seeing Pulmonology to see what she has to offer. He wants to remain a FULL CODE at this time. We will continue to discuss advanced care planning and CODE status at future visits. Follow up in 2 months, sooner as needed. Review of Systems All systems reviewed & are unremarkable except as noted in HPI and below [facility] Medical History (Updated 11/01/20 @ 16:18 by Nikole Marino NP) Abdominal pain Blood coagulation disorder BPH without obstruction/lower urinary tract symptoms Chest pain Chronic respiratory failure with hypercapnia Closed fracture of middle and/or proximal phalanx of finger COPD (chronic obstructive pulmonary disease) COPD (chronic obstructive pulmonary disease) with emphysema Depressive disorder Epigastric pain High cholesterol Hypoxemia Impotence Localized edema Low back pain Ophthalmic herpes simplex Pain in joint of left shoulder Palliative care patient Tobacco use disorder Social History Smoking/Tobacco Use Status: Former Tobacco Use Quit Date: 10/26/20 Tobacco: How many years used: 50 Smoking risk assessment performed?: Yes Alcohol Intake: current Alcohol Intake frequency: holidays/special occasions only Alcohol type: beer and hard liquor Drug use: Daily Substance use type: marijuana Details: pt states I try to do it once a day but I haven't been able to lately. Do you feel safe at home: Yes Do you feel safe in your relationship?: Yes Exam Narrative Exam Narrative: General: appears older than stated age, tearful at times, alert and oriented, answers questions appropriately. HEENT: normocephalic, atraumatic, makes eye contact, mucous membranes moist. Neck: supple. Cardiovascular: heart sounds regular, nontachycardic. Respiratory: respirations appear unlabored, lung sounds with expiratory wheezes throughout. no rales. GI: +BS, soft, nontender on palpation, nondistended. Extremities: 1+ pitting edema to BLEs. Skin on BLEs wrinkled. Results Last Vital Signs Temp 36.0 C L 11/01/20 07:49 Pulse 96 H 11/01/20 10:34 Resp 18 11/01/20 10:34 BP 115/67 11/01/20 07:49 Pulse Ox 95 11/01/20 10:34 Labs Result diagrams: 11/01/20 08:30 11/01/20 08:30 Labs: Laboratory Results - last 24 hr 11/01/20 11/01/20 08:30 08:30 WBC 12.18 H RBC 4.14 L Hgb 13.5 Hct 41.4 MCV 100.0 H MCH 32.6 MCHC 32.6 RDW 12.8 Plt Count 156 MPV 9.5 Immature Gran % 0.5 Neutrophils % 96.8 Lymphocytes % 1.1 Monocytes % 1.6 Eosinophils % 0.0 Basophils % 0.0 Nucleated RBC % 0 Absolute Neutrophils 11.79 H Absolute Lymphocytes 0.13 L Absolute Monocytes 0.19 Absolute Eosinophils 0.00 Absolute Basophils 0.00 Sodium 145 Potassium 4.4 Chloride 106 Carbon Dioxide 35.9 H Anion Gap 3.1 BUN 26 H Creatinine 0.8 Estimated GFR/1.73 m2 >= 60.00 Glucose 142 H Calcium 8.9
--- NOTE | 2020-11-01 13:37 | PT.INTREAT ---
Date of service: 11/01/20 Time of Service: 10:45 PT Notes Visit Reasons: Exacerbation COPD, Hypoxemia, Chronic Resp failure Inpatient Physical Therapy Treatment Note [facility] Date: 11/01/2020 PRECAUTIONS: Significant KIRK SUBJECTIVE: Marc states that he feels much better, and is looking forward to going home today. OBJECTIVE: PAIN: No c/o pain BED MOBILITY/TRANSFERS Supine-sit: I Sit-supine: I Sit-stand: I Stand-sit: I GAIT Assistive Device: 4WW Weight bearing: Full Assist: I Distance: ~100' Deviation: Minimal KIRK VITALS: SaO2: 95-98% on RA with gait training ASSESSMENT: Patient tolerated session with slightly increased KIRK. He was able to tolerate a progression in gait distance with 4WW support. He demonstrates independence with pacing, and ambulation with 4WW at this time and also demonstrates good understanding of safe use of 4WW following training. PLAN: Recommend follow up with PT upon discharge. TREATMENT CODE/TIME: 10 minutes; [id number] (10:45)
--- NOTE | 2020-11-01 14:27 | CHAPLAIN ---
I had a brief visit with Marc as he had two visitors with him when I stopped in. I introduced myself, explained my role and offered support.
--- NOTE | 2020-11-01 16:20 | PT.INTREAT ---
Date of service: 11/01/20 Time of Service: 15:55 PT Notes Visit Reasons: Exacerbation COPD, Hypoxemia, Chronic Resp failure Inpatient Physical Therapy Treatment Note [facility] Date: 11/01/20 PRECAUTIONS:standard SUBJECTIVE: Marc states that he's feeling good. He has questions about his oxygen needs. OBJECTIVE: PAIN: denies BED MOBILITY/TRANSFERS Rolling L/R: independent Supine-sit: independent Sit-supine: independent Sit-stand: independent Stand-sit: independent Bed-Chair: independent Chair-bed: independent GAIT Assistive Device: 4WW Weight bearing: full Assist: independent Distance: 50'x2; 75'x1 VITALS: significant KIRK with ambulation on RA today. At rest, patient is at 88% on RA, although resaturates to 94% rapidly during ambulation. He remains in the 90s throughout, despite severe KIRK requiring seated rest after 50'. Patient is able to ambulate 75' on return to room, however becomes severely dyspneic, requiring 8 minute recovery for breathing. SaO2 remain in 90s during this episode. THEREX: unable ASSESSMENT: Very dyspneic during short distance ambulation today, with very difficult recovery of breathing. PLAN: Continue with cardiovascular retraining with close monitoring of vitals. Patient will benefit from repeated, short distance ambulation within tolerance (modified ADRIAN < 7). TREATMENT CODE/TIME: 3:55-4:20 ([id number]) Florinda Rodriguez, PT, DPT [facility]
--- NOTE | 2020-11-01 16:38 | W.PM.PROGNOT ---
Date of Service Date of service: 11/01/20 Time of Service: 16:38 Assessment and Plan Assessment and plan (1) COPD exacerbation: Start date: 11/01/20 Start time: 17:13 Status: Acute Assessment and plan: doxycycline day 4/5 continue steroid, taper as able. on home O2, never had PFT per daughter He is a full code. He has low saturation while ambulating when talking and gets winded easily causing SOB with wheezing. He had to sit for several mins on RA he went as low as 88% while ambulating and talking when he had to sit. (2) Tobacco use disorder: Start date: 11/01/20 Start time: 17:15 Status: Chronic Assessment and plan: Per ready to quit has not smoked in three weeks (3) Acute and chronic respiratory failure, unspecified whether with hypoxia or hypercapnia: Start date: 11/01/20 Start time: 17:20 Status: Acute Assessment and plan: PFTs ordered for Wednesday He should also have an echo to r/o pulmonary HTN Qualifiers: Respiratory failure complication: hypoxia and hypercapnia Qualified Code(s): J96.21 - Acute and chronic respiratory failure with hypoxia; J96.22 - Acute and chronic respiratory failure with hypercapnia (4) Palliative care patient: Start date: 11/01/20 Start time: 17:22 Status: Acute Assessment and plan: Per Palliative Nikole Pop Marc is a very pleasant 70 year old man with a past medical history significant for COPD, acute and chronic respiratory failure, chronically on oxygen, Protein C deficiency on anticoagulation, current smoker, BPH, who is currently in the hospital being treated for COPD exacerbation. He is not sure if he has ever had an echocardiogram. Palliative care was consulted to discuss goals of care and advanced care planning. He is feeling better overall. His goal is to save enough money for his final expenses so he does not leave his with the bill. He wants to be home at the end of life. He is interested in seeing Pulmonology to see what she has to offer. He wants to remain a FULL CODE at this time. We will continue to discuss advanced care planning and CODE status at future visits. Follow up in 2 months, sooner as needed. (5) Depression: Start date: 11/01/20 Start time: 17:24 Status: Chronic Assessment and plan: From chronic disease. Started on zoloft. Qualifiers: Depression Type: other depression Qualified Code(s): F32.89 - Other specified depressive episodes (6) Suicidal ideation: Start date: 11/01/20 Start time: 17:24 Status: Acute Assessment and plan: Thoughts of SI, no active plan. He has safety plan with CM at this time he does not need CPSO. However if he becomes worse he will need cpso (7) DVT prophylaxis: Start date: 11/01/20 Start time: 17:23 Status: Acute Assessment and plan: On eliquis (8) Discharge planning issues: Start date: 11/01/20 Start time: 17:26 Status: Acute Assessment and plan: home with home health services. Subjective Subjective Patient reports: shortness of breath and other Interval history since last seen: Patient was ambulatory with PT, while ambulating his saturation was in upper 90's until, he started speaking. His sats dropped to 88% with ambulation he became severely SOB, had to stop ambulation and sit in his roller walker. I taught him purse lipped breathing. Ativan has also been ordered for anxiety and SOB. Sitting down he had severe wheezing heard across the room with severe secretions in his lungs therefore Muycomist x 24, acapella. He also expressed SI and depression. He is agreeable to zoloft for depression. He was tearful during conversation with myself and Maryjane CM about wanting to kill himself and make it look like an accident for insurance purposes, he states he has felt this way for the past 6 months. Though he has not felt well for the last 6 months and he feels as though he is getting worse. met with patient they feel he does not meet involuntary criteria and he does not want voluntary. He has agreed to a safety contract. At this time he does not require a CPSO, however if he does have an active plan one will be placed. He denies CP. N/V/d. Exam Narrative Exam Narrative: General: appears older than stated age, tearful at times, alert and oriented, answers questions appropriately. HEENT: normocephalic, atraumatic, makes eye contact, mucous membranes moist. Neck: supple. Cardiovascular: heart sounds regular, nontachycardic. Respiratory: respirations appear labored with ambulation, lung sounds with expiratory wheezes throughout. no rales. GI: +BS, soft, nontender on palpation, nondistended. Extremities: 1+ pitting edema to BLEs. Skin on BLEs wrinkled. Objective Last Vital Signs Temp 36.0 C L 11/01/20 07:49 Pulse 96 H 11/01/20 10:34 Resp 18 11/01/20 10:34 BP 115/67 11/01/20 07:49 Pulse Ox 95 11/01/20 10:34 Laboratory Results - last 24 hr 11/01/20 11/01/20 08:30 08:30 WBC 12.18 H RBC 4.14 L Hgb 13.5 Hct 41.4 MCV 100.0 H MCH 32.6 MCHC 32.6 RDW 12.8 Plt Count 156 MPV 9.5 Immature Gran % 0.5 Neutrophils % 96.8 Lymphocytes % 1.1 Monocytes % 1.6 Eosinophils % 0.0 Basophils % 0.0 Nucleated RBC % 0 Absolute Neutrophils 11.79 H Absolute Lymphocytes 0.13 L Absolute Monocytes 0.19 Absolute Eosinophils 0.00 Absolute Basophils 0.00 Sodium 145 Potassium 4.4 Chloride 106 Carbon Dioxide 35.9 H Anion Gap 3.1 BUN 26 H Creatinine 0.8 Estimated GFR/1.73 m2 >= 60.00 Glucose 142 H Calcium 8.9
[2020-11-01] MEDS: Acetylcysteine 20% *ORAL/INHALED* 6000 MG/30 ML VIAL UPD ×2 (18:18→21:46)
[2020-11-01] MEDS: predniSONE 20 MG TAB 60 MG PO (19:58)
[2020-11-01] MEDS: LORazepam 1 MG TAB PO ×2 (19:58→22:41)
[2020-11-01] MEDS: Albuterol 2.5 MG/3 ML INH SOLN VIAL UPD (20:15)
[2020-11-01] MEDS: Terazosin 2 MG CAP 4 MG PO (21:45)
[2020-11-02] VITALS (12 sets, daily range): BP systolic 114–128; BP diastolic 56–76; PULSE 74–97; RESP 4–25; TEMP 36.4–37.1; O2SAT 94–99
[2020-11-02] MEDS: Acetylcysteine 20% *ORAL/INHALED* 6000 MG/30 ML VIAL UPD ×4 (04:44→23:05)
[2020-11-02] MEDS: Albuterol/Ipratropium 3 ML UPD VIAL UPD ×4 (05:07→23:04)
[2020-11-02 07:13] LABS: Abs Immature Grans 0.04 10^3/uL (0.0-0.06); Absolute Basophil Count 0.01 10^3/uL (0.0-0.2); Absolute Lymphocyte Count 0.13 10^3/uL (1.2-3.4); Absolute Monocyte Count 0.24 10^3/uL (0.1-0.8); Absolute Neutrophil Count 8.22 10^3/uL (1.2-6.7); Basophils % 0.1; HCT 38.5 % (40.0-50.0); HGB 12.5 g/dL (13.5-17.5); Immature Grans % 0.5; Lymphocytes % 1.5; MCH 32.2 pg (27.0-33.0); MCHC 32.5 % (32.0-36.0); MCV 99.2 fL (80-95); MPV 9.6 fL (8.0-11.0); Monocytes % 2.8; Neutrophils % 95.1; Nucleated RBC 0 %; Platelet Count 143 10^3/uL (130-400); RBC 3.88 10^6/uL (4.36-5.78); RDW 12.8 % (11.8-14.1); RDW-SD 46.6 fL; WBC 8.64 10^3/uL (4.4-10.8)
[2020-11-02 07:20] LABS: Anion Gap 1.5 mmol/L (3-11); BUN 29 mg/dL (7-18); CO2 36.5 mmol/L (21.0-32.0); CREATININE 0.8 mg/dL (0.70-1.30); Calcium 8.4 mg/dL (8.5-10.1); Chloride 105 mmol/L (98-107); Glucose 161 mg/dL (74-106); Magnesium 2.2 mg/dL (1.8-2.4); Potassium 4.7 mmol/L (3.5-5.1); Sodium 143 mmol/L (136-145)
[2020-11-02] MEDS: Furosemide 40 MG TAB PO (07:58)
[2020-11-02] MEDS: predniSONE 20 MG TAB 60 MG PO (07:58)
[2020-11-02] MEDS: Azithromycin 250 MG TAB PO (07:58)
[2020-11-02] MEDS: Apixaban 5 MG TAB PO ×2 (07:58→19:54)
[2020-11-02] MEDS: LORazepam 1 MG TAB PO ×3 (07:59→19:55)
[2020-11-02] MEDS: Tamsulosin 0.4 MG CAPCR 0.8 MG PO (07:59)
[2020-11-02] MEDS: Budesonide/Formoterol 80/4.5 6.9 GM 60 PUFF INH IH ×2 (08:32→19:53)
[2020-11-02] MEDS: Polyethylene Glycol 3350 17 GM PACKET PO (08:43)
[2020-11-02] MEDS: Docusate Sodium 100 MG CAP PO (08:43)
--- NOTE | 2020-11-02 09:59 | PT.INTREAT ---
PT Notes Visit Reasons: Exacerbation COPD, Hypoxemia, Chronic Resp failure Inpatient Physical Therapy Treatment Note [facility] Date: 11/02/20 PRECAUTIONS:[] SUBJECTIVE: Pt reports that he had a lot of anxiety last night and had a difficult night. OBJECTIVE: Sit-stand: I Stand-sit: I GAIT Assistive Device: 4WW Weight bearing: Full Assist: S Distance: from the bed to the door and back x 4. Pt required 2 seated rest during that time with oxygen rest. Pt's oxygen was in the low 90% during ambulation. ASSESSMENT: Pt tolerated today's session well. PLAN: Cont as per PT POC. TREATMENT CODE/TIME: 8:45-9 (15)
[2020-11-02] MEDS: DOXYCYCLINE 100 MG in Normal Saline 100 ML IVPB ×2 (10:26→23:05)
[2020-11-02] MEDS: Normal Saline Flush 10 ML SYR IVP (10:27)
[2020-11-02 12:30] LABS: HCO3 40 mmol/L (22-26); pO2 46 mmHg (80-105); sO2 84 % (95-98); tCO2 36 mmol/L (23-27)
[2020-11-02 12:34] LABS: BE > 15 mmol/L (-2-3); Site Left Radial; pCO2 65 mmHg (35-45)
[2020-11-02 12:35] LABS: FIO2 21 %
[2020-11-02 13:58] LABS: NT-proBNP 267 pg/mL (<300)
--- NOTE | 2020-11-02 14:16 | W.PM.PROGNOT ---
Date of Service Date of service: 11/02/20 Time of Service: 14:16 Assessment and Plan Assessment and plan (1) COPD exacerbation: Start date: 11/02/20 Start time: 14:33 Status: Acute Assessment and plan: doxycycline day 08/07, also added azithromycin as he had sputum color changes now that he is having sputum production yellow thick sputum azithromycin added. Per Dr. East recommendations he was changed to 40 mg steroid daily, placed on spiriva and lower dose symbicort bid on home O2, never had PFT per daughter has been ordered for Wednesday ABG on air reveals pCO2 65, pO2 46, HCO 40 O2 84 based on these values of pCO2 he would qualify for trilogy. PFT for Wednesday. He has never had an echo either to r/o pulmonary HTN echo for Wednesday as well He is a full code. Seen by palliative yesterday He is starting to produce thick yellow sputum and lung sounds are sounding better will continue another 24 hours of mucomyst to help break secretions along with mucinex and acapella (2) Tobacco use disorder: Start date: 11/02/20 Start time: 14:42 Status: Chronic Assessment and plan: Per ready to quit has not smoked in three weeks (3) Acute and chronic respiratory failure, unspecified whether with hypoxia or hypercapnia: Start date: 11/02/20 Start time: 14:42 Status: Acute Assessment and plan: PFTs ordered for Wednesday He should also have an echo to r/o pulmonary HTN this is also evidenced by RA abg Qualifiers: Respiratory failure complication: hypoxia and hypercapnia Qualified Code(s): J96.21 - Acute and chronic respiratory failure with hypoxia; J96.22 - Acute and chronic respiratory failure with hypercapnia (4) Palliative care patient: Start date: 11/02/20 Start time: 14:42 Status: Acute Assessment and plan: Per Palliative Nikole Pop Marc is a very pleasant 70 year old man with a past medical history significant for COPD, acute and chronic respiratory failure, chronically on oxygen, Protein C deficiency on anticoagulation, current smoker, BPH, who is currently in the hospital being treated for COPD exacerbation. He is not sure if he has ever had an echocardiogram. Palliative care was consulted to discuss goals of care and advanced care planning. He is feeling better overall. His goal is to save enough money for his final expenses so he does not leave his with the bill. He wants to be home at the end of life. He is interested in seeing Pulmonology to see what she has to offer. He wants to remain a FULL CODE at this time. We will continue to discuss advanced care planning and CODE status at future visits. Follow up in 2 months, sooner as needed. (5) Depression: Start date: 11/02/20 Start time: 14:43 Status: Chronic Assessment and plan: From chronic disease. Started on zoloft. Qualifiers: Depression Type: other depression Qualified Code(s): F32.89 - Other specified depressive episodes (6) Suicidal ideation: Start date: 11/02/20 Start time: 14:43 Status: Acute Assessment and plan: Thoughts of SI, no active plan. He has safety plan with CM at this time he does not need CPSO. However if he becomes worse he will need cpso (7) DVT prophylaxis: Start date: 11/02/20 Start time: 14:43 Status: Acute Assessment and plan: On eliquis (8) Discharge planning issues: Start date: 11/02/20 Start time: 14:43 Status: Acute Assessment and plan: home with home health services. when medically ready above discussed with Dr. Blanc Subjective Subjective Patient reports: other Interval history since last seen: Not feeling better today, though he is starting to cough up yellow sputum with mucomyst. Which he was unable to produce prior to today. I spoke with his yesterday and she stated he has not smoked in 3 weeks. He wants to quit. ABG on RA reveals pCO2 65, p)2 46.3, sO2 83.9, also wonder if component of cardiac issue. Per he has had wt loss over last couple months as well. Echo placed for Wednesday along with PFT. At this time he qualifies for trilogy and if he is able to I would like to send him home on one I think he would do better on this then oxygen as this would be easier to carry and decrease anxiety. Dr. East met with patient and made recommendations to treatment, changed medications based on recommendations. She will follow up with him as an outpatient. He denies CP, N/V/D. Ativan does appear to be helping with anxiety and SOB. Exam Narrative Exam Narrative: General: appears older than stated age, appears calm though he does say he has had some anxiety today, alert and oriented, answers questions appropriately. HEENT: normocephalic, atraumatic, makes eye contact, mucous membranes moist. Neck: supple. Cardiovascular: heart sounds regular, nontachycardic. Respiratory: respirations appear labored with rest, he is at baseline, lung sounds with rhonchi. no rales. GI: +BS, soft, nontender on palpation, nondistended. Extremities: 1+ pitting edema to BLEs. Skin on BLEs wrinkled. Objective Last Vital Signs Temp 36.4 C L 11/02/20 02:47 Pulse 83 11/02/20 07:57 Resp 17 11/02/20 07:57 BP 114/68 11/02/20 07:57 Pulse Ox 99 11/02/20 07:57 Laboratory Results - last 24 hr 11/02/20 11/02/20 11/02/20 06:43 06:43 12:25 WBC 8.64 RBC 3.88 L Hgb 12.5 L Hct 38.5 L MCV 99.2 H MCH 32.2 MCHC 32.5 RDW 12.8 Plt Count 143 MPV 9.6 Immature Gran % 0.5 Neutrophils % 95.1 Lymphocytes % 1.5 Monocytes % 2.8 Eosinophils % 0.0 Basophils % 0.1 Nucleated RBC % 0 Absolute Neutrophils 8.22 H Absolute Lymphocytes 0.13 L Absolute Monocytes 0.24 Absolute Eosinophils 0.00 Absolute Basophils 0.01 ABG Sample Site Left Radial ABG pH 7.40 ABG pCO2 65 H* ABG pO2 46 L ABG HCO3 40 H ABG Total CO2 36 H ABG O2 Saturation 84 L ABG Base Excess > 15 H FiO2 21 Sodium 143 Potassium 4.7 Chloride 105 Carbon Dioxide 36.5 H Anion Gap 1.5 L BUN 29 H Creatinine 0.8 Estimated GFR/1.73 m2 >= 60.00 Glucose 161 H Calcium 8.4 L Magnesium 2.2 NT-Pro-B Natriuret Pep 267
[2020-11-02] MEDS: Acetaminophen 325 MG TAB 650 MG PO (19:54)
[2020-11-02] MEDS: Terazosin 2 MG CAP 4 MG PO (23:04)
[2020-11-03] VITALS (12 sets, daily range): BP systolic 101–129; BP diastolic 59–71; PULSE 71–95; RESP 2–19; TEMP 36.3–38.1; O2SAT 94–98
[2020-11-03] MEDS: Albuterol/Ipratropium 3 ML UPD VIAL UPD ×4 (04:59→23:23)
[2020-11-03] MEDS: Acetylcysteine 20% *ORAL/INHALED* 6000 MG/30 ML VIAL UPD ×2 (04:59→13:10)
[2020-11-03 07:34] LABS: Abs Immature Grans 0.06 10^3/uL (0.0-0.06); Absolute Basophil Count 0.01 10^3/uL (0.0-0.2); Absolute Eosinophil Count 0.04 10^3/uL (0.0-0.7); Absolute Lymphocyte Count 0.74 10^3/uL (1.2-3.4); Absolute Monocyte Count 0.45 10^3/uL (0.1-0.8); Absolute Neutrophil Count 6.54 10^3/uL (1.2-6.7); Basophils % 0.1; Eosinophils % 0.5; HCT 37.5 % (40.0-50.0); HGB 11.9 g/dL (13.5-17.5); Immature Grans % 0.8; Lymphocytes % 9.4; MCH 32.2 pg (27.0-33.0); MCHC 31.7 % (32.0-36.0); MCV 101.6 fL (80-95); MPV 9.6 fL (8.0-11.0); Monocytes % 5.7; Neutrophils % 83.5; Nucleated RBC 0 %; Platelet Count 146 10^3/uL (130-400); RBC 3.69 10^6/uL (4.36-5.78); RDW 12.8 % (11.8-14.1); RDW-SD 48.6 fL; WBC 7.84 10^3/uL (4.4-10.8)
[2020-11-03 07:52] LABS: Anion Gap -0.8 mmol/L (3-11); BUN 24 mg/dL (7-18); CO2 39.8 mmol/L (21.0-32.0); CREATININE 0.7 mg/dL (0.70-1.30); Calcium 8.2 mg/dL (8.5-10.1); Chloride 105 mmol/L (98-107); Glucose 103 mg/dL (74-106); Potassium 4.3 mmol/L (3.5-5.1); Sodium 144 mmol/L (136-145)
[2020-11-03] MEDS: Azithromycin 250 MG TAB PO (08:19)
[2020-11-03] MEDS: Apixaban 5 MG TAB PO ×2 (08:19→20:42)
[2020-11-03] MEDS: predniSONE 20 MG TAB 40 MG PO (08:19)
[2020-11-03] MEDS: Tamsulosin 0.4 MG CAPCR 0.8 MG PO (08:20)
[2020-11-03] MEDS: LORazepam 1 MG TAB PO ×3 (08:20→20:42)
[2020-11-03] MEDS: Furosemide 40 MG TAB PO (08:21)
--- NOTE | 2020-11-03 09:22 | PT.INTREAT ---
PT Notes Visit Reasons: Exacerbation COPD, Hypoxemia, Chronic Resp failure Inpatient Physical Therapy Treatment Note [facility] Date: 11/03/20 PRECAUTIONS:[] SUBJECTIVE: Pt reports that his anxiety he experienced yesterday made him tired today. OBJECTIVE: Sit-stand: SBA Stand-sit: SBA GAIT Assistive Device: 4WW Weight bearing: Full Assist: CGA/SBA Distance: From the bed to the door and back x 2 with 2 seated rest with oxygen on when resting. Pt's oxygen was in the mid to high 90% during his session. ASSESSMENT: Pt was not able to tolerated as much walking as yesterday and seems more anxious and tired today. PLAN: Cont as per PT POC. TREATMENT CODE/TIME: 9-9:14 (14) TA
[2020-11-03] MEDS: Tiotropium Bromide-Respimat 10 PUFF INH 2 PUFF IH (10:34)
[2020-11-03] MEDS: Budesonide/Formoterol 80/4.5 6.9 GM 60 PUFF INH IH ×2 (10:36→20:43)
[2020-11-03] MEDS: Acetaminophen 325 MG TAB 650 MG PO ×2 (12:59→20:42)
[2020-11-03] MEDS: VANCOMYCIN/WATER (PEG) 1.5 GM/300 ML BAG IV (13:09)
--- NOTE | 2020-11-03 13:45 | RT.EKG_ITS ---
APPROVED REPORT Exam: Resting ECG Reason for Exam: Tachy, with SOB Patient Location: I HR:99 bpm ECG Measurements Heart Rate 99 AXIS [place] 112 P 63 QRSd 81 QRS 74 QT 334 T 67 QTc 430 Conclusion Sinus rhythm...normal P axis, V-rate 60- 99 Supraventricular bigeminy...bigeminy string>4 w/ SV complexes
[2020-11-03 13:47] LABS: Bilirubin Negative (Negative); Blood Moderate (Negative); Clarity Clear (Clear); Glucose Negative (Negative); Ketones Negative (Negative); Leukocyte Esterase Negative (Negative); Nitrite Negative (Negative); Urobilinogen 0.2 EU/dL (Up TO 0.2); pH 5.5 (5-8)
[2020-11-03 14:24] LABS: Epithelial Cells Few HPF (Negative); Other Cells Few Transitional (Negative); WBC Negative HPF (0-5)
[2020-11-03 14:25] LABS: Bacteria Negative HPF (Negative); C & S Indicated? No; Casts Negative LPF (Negative); Crystals Negative HPF (Negative); Mucus Negative (Negative)
--- NOTE | 2020-11-03 15:24 | DI.RAD_ITS ---
Exam(s) XR CHEST 2V PA LATERAL EXAM: XR CHEST 2V PA LATERAL CLINICAL HISTORY: fever TECHNIQUE: COMPARISON: CR XR CHEST 2V PA LATERAL from 10/03/2020 FINDINGS: The lungs are hyperinflated consistent with COPD. No focal intrapulmonary consolidation identified. No pleural effusion seen. No change from examination of October 03. IMPRESSION: No evidence of acute process. RADIATION DOSE DELIVERED: Total DLP
[2020-11-03] MEDS: CEFEPIME 2 GM in Normal Saline 100 ML IVPB ×2 (15:36→23:23)
--- NOTE | 2020-11-03 16:33 | DI.VRAD_ITS ---
PROCEDURE INFORMATION: Exam: XR Chest Exam date and time: 11/03/2020 12:35 PM Age: 70 years old Clinical indication: Fever and shortness of breath; Patient HX: Fever, SOB TECHNIQUE: Imaging protocol: XR of the chest. Views: 2 views. COMPARISON: CR XR CHEST 2V PA LATERAL 10/03/2020 1:40 PM FINDINGS: Lungs: Unremarkable. No consolidation. Pleural spaces: Bilateral pleural effusions. Heart/Mediastinum: Unremarkable. No cardiomegaly. Bones/joints: Unremarkable. IMPRESSION: Bilateral pleural effusions Dictated and Authenticated by: Sandra Amaya MD. Ordering:CHLOE Pond MD
--- NOTE | 2020-11-03 17:49 | W.PM.PROGNOT ---
Date of Service Date of service: 11/03/20 Time of Service: 13:15 Assessment and Plan Assessment and plan (1) Fever: Start date: 11/03/20 Start time: 18:06 Status: Acute Assessment and plan: Just finished doxy for bronchitis/copd exacerbation and finishing azithromycin, when patient spiked fever today of 38.1 Stat urine done, urine cx pending Stat cxr revealing no acute process Blood cx pending, He was placed on broad spectrum antibiotics. I suspect the source to be urinary even though the u/a is normal Qualifiers: Fever type: unspecified Qualified Code(s): R50.9 - Fever, unspecified (2) Urinary retention with incomplete bladder emptying: Start date: 11/03/20 Start time: 18:09 Status: Acute Assessment and plan: He is on flomax and terazosin still he had over 1 l in his bladder, silva inserted with [address] Peguero consulted Renal ultrasound for tomorrow to r/o obstructions (3) COPD exacerbation: Start date: 11/03/20 Start time: 18:11 Status: Acute Assessment and plan: Per Dr. East recommendations he was changed to 40 mg steroid daily, placed on spiriva and lower dose symbicort bid on home O2, never had PFT per daughter has been ordered for Wednesday ABG on air reveals pCO2 65, pO2 46, HCO 40 O2 84 based on these values of pCO2 he would qualify for trilogy. PFT for Wednesday. He has never had an echo either to r/o pulmonary HTN echo for Wednesday as well He is a full code. (4) Tobacco use disorder: Start date: 11/03/20 Start time: 18:12 Status: Chronic Assessment and plan: Per ready to quite has not smoked in three weeks (5) Acute and chronic respiratory failure, unspecified whether with hypoxia or hypercapnia: Start date: 11/03/20 Start time: 18:13 Status: Acute Assessment and plan: PFTs ordered for tomorrow echo to r/o pulmonary HTN tomorrow this is also evidenced by RA abg Qualifiers: Respiratory failure complication: hypoxia and hypercapnia Qualified Code(s): J96.21 - Acute and chronic respiratory failure with hypoxia; J96.22 - Acute and chronic respiratory failure with hypercapnia (6) Palliative care patient: Start date: 11/03/20 Start time: 18:15 Status: Acute Assessment and plan: Per Palliative Nikole [employer] Engineer Marc is a very pleasant 70 year old man with a past medical history significant for COPD, acute and chronic respiratory failure, chronically on oxygen, Protein C deficiency on anticoagulation, current smoker, BPH, who is currently in the hospital being treated for COPD exacerbation. He is not sure if he has ever had an echocardiogram. Palliative care was consulted to discuss goals of care and advanced care planning. He is feeling better overall. His goal is to save enough money for his final expenses so he does not leave his with the bill. He wants to be home at the end of life. He is interested in seeing Pulmonology to see what she has to offer. He wants to remain a FULL CODE at this time. We will continue to discuss advanced care planning and CODE status at future visits. Follow up in 2 months, sooner as needed. (7) Depression: Start date: 11/03/20 Start time: 18:15 Status: Chronic Assessment and plan: From chronic disease. Started on zoloft. Qualifiers: Depression Type: other depression Qualified Code(s): F32.89 - Other specified depressive episodes (8) Suicidal ideation: Start date: 11/03/20 Start time: 18:15 Status: Acute Assessment and plan: States no thoughts of SI. No active plan. He has safety plan with CM at this time he does not need CPSO. However if he becomes worse he will need cpso (9) DVT prophylaxis: Start date: 11/03/20 Start time: 18:16 Status: Acute Assessment and plan: On eliquis (10) Discharge planning issues: Start date: 11/03/20 Start time: 18:16 Status: Acute Assessment and plan: home with home health services. when medically ready above discussed with Dr. Blanc Subjective Subjective Patient reports: fever Interval history since last seen: Not feeling well today. Became febrile this evening. Over 1000 ml in his urine after having silva catheter placed. Fever this afternoon stat urine ordered revealing no nitrates, leuk estras, urine cx ordered, he was also having SOB, and tachycardia, EKG done, placed on telemetry, ativan given. Cefepime and vanco ordered. Exam Narrative Exam Narrative: General: appears older than stated age, laying in bed, alert and oriented, answers questions appropriately. HEENT: normocephalic, atraumatic, makes eye contact, mucous membranes moist. Neck: supple. Cardiovascular: heart sounds regular, nontachycardic. Respiratory: respirations appear labored with rest, he is at baseline, lung sounds with rhonchi. no rales. GI: +BS, soft, nontender on palpation, nondistended. Extremities: 1+ pitting edema to BLEs. Skin on BLEs wrinkled. Objective Last Vital Signs Temp 37.7 C H 11/03/20 15:35 Pulse 95 H 11/03/20 16:12 Resp 18 11/03/20 07:30 BP 118/60 11/03/20 12:55 Pulse Ox 95 11/03/20 12:55 Laboratory Results - last 24 hr 11/03/20 11/03/20 11/03/20 06:58 06:58 13:08 WBC 7.84 RBC 3.69 L Hgb 11.9 L Hct 37.5 L MCV 101.6 H MCH 32.2 MCHC 31.7 L RDW 12.8 Plt Count 146 MPV 9.6 Immature Gran % 0.8 Neutrophils % 83.5 Lymphocytes % 9.4 Monocytes % 5.7 Eosinophils % 0.5 Basophils % 0.1 Nucleated RBC % 0 Absolute Neutrophils 6.54 Absolute Lymphocytes 0.74 L Absolute Monocytes 0.45 Absolute Eosinophils 0.04 Absolute Basophils 0.01 Sodium 144 Potassium 4.3 Chloride 105 Carbon Dioxide 39.8 H Anion Gap -0.8 L BUN 24 H Creatinine 0.7 Estimated GFR/1.73 m2 >= 60.00 Glucose 103 D Calcium 8.2 L Urine Color Yellow Urine Clarity Clear Urine pH 5.5 Ur Specific [place] 1.020 Urine Protein Negative Urine Ketones Negative Urine Blood Moderate H Urine Nitrite Negative Urine Bilirubin Negative Urine Urobilinogen 0.2 Ur Leukocyte Esterase Negative Urine RBC 10-20 H Urine WBC Negative Ur Epithelial Cells Few Urine Crystals Negative Urine Bacteria Negative Urine Casts Negative Urine Mucus Negative Urine Other Few Transitional Ur Culture Indicated? No Urine Glucose Negative
[2020-11-03] MEDS: Normal Saline Flush 10 ML SYR IVP (23:23)
[2020-11-03] MEDS: Terazosin 2 MG CAP 4 MG PO (23:23)
[2020-11-04] VITALS (12 sets, daily range): BP systolic 110–124; BP diastolic 69–78; PULSE 82–95; RESP 2–28; TEMP 36.6–37.2; O2SAT 93–100
[2020-11-04] MEDS: VANCOMYCIN/WATER (PEG) 1.5 GM/300 ML BAG IV ×2 (00:29→12:34)
[2020-11-04] MEDS: Albuterol/Ipratropium 3 ML UPD VIAL UPD ×4 (05:06→23:45)
[2020-11-04] MEDS: CEFEPIME 2 GM in Normal Saline 100 ML IVPB ×3 (05:06→22:57)
--- NOTE | 2020-11-04 07:00 | DI.US_ITS ---
Exam(s) US RENAL EXAM: US RENAL CLINICAL HISTORY: urinary retention TECHNIQUE: Ultrasound of both kidneys performed using standard protocol. COMPARISON: No exams were available for comparison FINDINGS: RIGHT KIDNEY: Measures 10.5 cm in length. No cysts evident. Normal cortical thickness and corticomedullary differen tiation .No solid masses No intrarenal calculi nor hydronephrosis. LEFT KIDNEY: Measures 12.7 cm in length. There are 2 adjacent small cysts in the upper pole. The larger measures 1.6 x 1.7 cm and the smaller measures 1.2 x 1.3 cm. Normal cortical thickness and corticomedullary differentiaion. No solids masses. No intrarenal calculi nor hydonephrosis. URINARY BLADDER: There is a Hudson catheter balloon noted in the urinary bladder lumen Prevoid volume is 74 cc (Hudson clamped) Postvoid volume is 11 cc (Hudson unclamped) Bladder wall thickness is 6-7 millimeters No evidence of obvious focal bladder mass nor diverticuli. IMPRESSION: 1. Two small adjacent benign cysts are noted in superior pole of the left kidney. No other signific ant focal renal findings. No calculi nor hydronephrosis. 2. Hudson catheter in urinary bladder, as above. DATA REPOSITORY:
[2020-11-04 07:14] LABS: Abs Immature Grans 0.06 10^3/uL (0.0-0.06); Absolute Basophil Count 0.01 10^3/uL (0.0-0.2); Absolute Eosinophil Count 0.09 10^3/uL (0.0-0.7); Absolute Lymphocyte Count 0.66 10^3/uL (1.2-3.4); Absolute Monocyte Count 0.45 10^3/uL (0.1-0.8); Absolute Neutrophil Count 5.64 10^3/uL (1.2-6.7); Basophils % 0.1; Eosinophils % 1.3; HCT 36.4 % (40.0-50.0); HGB 11.6 g/dL (13.5-17.5); Immature Grans % 0.9; Lymphocytes % 9.6; MCH 32.1 pg (27.0-33.0); MCHC 31.9 % (32.0-36.0); MCV 100.8 fL (80-95); MPV 9.5 fL (8.0-11.0); Monocytes % 6.5; Neutrophils % 81.6; Nucleated RBC 0 %; Platelet Count 144 10^3/uL (130-400); RBC 3.61 10^6/uL (4.36-5.78); RDW 12.7 % (11.8-14.1); RDW-SD 47.5 fL; WBC 6.91 10^3/uL (4.4-10.8)
--- NOTE | 2020-11-04 07:30 | DI.US_ITS ---
APPROVED REPORT EXAM: Comprehensive 2D, Doppler, and color-flow Echocardiogram Patient Location: In-Patient Room/Bed: [address] Installer: Carmenza Cavazos RDCS (AE) Indications: COPD, SOB, Smoker Other Information Study Quality: Technically Difficult. Technically limited study due to body habitus. Conclusion Left Ventricle : The left ventricle is normal size. The left ventricular systolic function is normal. The left ventricular ejection fraction is within the normal range. There is normal left ventricular wall thickness. There is normal LV segmental wall motion. The left ventricular diastolic function is normal. LVEF is 57%. Right Ventricle : The right ventricle is normal size. The right ventricular systolic function is norm al. Atria : The left atrium size is normal. The right atrium size is normal. Valves: There are no hemodynamically significant valvular lesions. Great Vessels : The aortic root is normal in size. Ascending aorta is not well visualized. IVC is nor mal in size and collapses >50% with inspiration. Please see remainder of study for further details. Wall motion Left Ventricle The left ventricle is normal size. The left ventricular systolic function is normal. The left ventric ular ejection fraction is within the normal range. There is normal left ventricular wall thickness. T here is normal LV segmental wall motion. The left ventricular diastolic function is normal. There is no ventricular septal defect visualized. LVEF is 57%. Right Ventricle The right ventricle is normal size. The right ventricular systolic function is normal. Atria The left atrium size is normal. The right atrium size is normal. The interatrial septum is intact wit h no evidence for an atrial septal defect. Aortic Valve The Aortic valve is sclerotic. Aortic valve is probably trileaflet. No hemodynamically significant va lvular aortic stenosis. No aortic regurgitation is present. Mitral Valve Mild mitral annular calcification. No evidence of mitral valve stenosis. Trace mitral regurgitation. Tricuspid Valve The tricuspid valve is normal in structure. There is no tricuspid valve stenosis. Trace tricuspid reg urgitation. Unable to assess PA pressure. Pulmonic Valve Pulmonic valve is not well visualized. There is no pulmonic valvular stenosis. There is no pulmonic v alvular regurgitation. Great Vessels The aortic root is normal in size. Ascending aorta is not well visualized. IVC is normal in size and collapses >50% with inspiration. Pericardium There is no pericardial effusion. 2D Dimensions IVSD d PLAX 0.72 cm M: 0.6-1.2 LV Vol A2C d MOD 75.2 mL LVPW d PLAX 0.79 cm M: 0.6 - 1.2 LV Vol A4C d MOD 90.4 mL LVID d PLAX 4.69 cm M: 4.2 - 5.8 LA vol/ BSA A2C s A-L 13.0 mL/m2 LVDs 3.25 cm M: 2.5 - 4.0 LA vol/ BSA A4C s A-L 16.4 mL/m2 Ao Root d 2.90 cm M: 3.1 - 3.7 LA Vol/ BSA Biplane s A-L 14.7 mL/m2 RA Area A4C 13.87 cm2 LA Area A4C s MOD 13.24 cm2 RA Vol/ BSA A4C s A-L 19.8 mL/m2 LA Area A2C s MOD 11.91 cm2 LV EF Teichholz 58.1 % LV EF A4C MOD 56.1 % LVEF (Rivera's) 55.49 % M: 52 - 72 LV EF A2C MOD 57.5 % LV Volume 64.38 mL M: 62 - 150 LV EF Biplane MOD 55.5 % LV Volume Index 33.70 mL/m2 M: 34 - 74 SV 46.93 mL LV Vol Biplane MOD 84.6 mL SV Index 24.53 mL/m2 FS 30.60 % M-Mode TAPSE 1.86 cm (M/F) >1.7 LV Diastology MV E' medial 0.099 (>0.07 m/s) E/A Ratio 0.9 LV E/e MED 10.10 (<14) MV E Vmax 1.01 (0.4-1.3 m/s) MV E' lateral 0.080 (>0.1 m/s) MV A Vmax 1.10 (0.4-1.3 m/s) LV E/e LAT 12.60 (<14) MV E/A Ratio 0.90 MV E/E' medial 10.13 MV E/E' lateral 12.61 Aortic Valve LVOT Area 3.02 cm2 AoV Area Vmax 2.07 cm2 LVOT Vmax 1.47 m/s AoV Area/ BSA (Vmax) 1.08 cm2/m2 LVOT Mean David. 0.92 m/s GAGAN Mean David. 1.77 cm2 LVOT Peak Grad 8.7 mmHg GAGAN Mean David. Index 0.92 cm2/m2 LVOT Mean Grad 4.3 mmHg LVOT VTI 0.278 m LVOT Diam s 1.95 cm AoV Vmax 2.15 m/s Velocity Ratio 0.68 AoV Mean David. 1.57 m/s AoV Peak Grad 18.5 mmHg LVOT SV 84.13 mL AoV Mean Grad 10.7 mmHg AoV VTI 0.431 m AoV Area VTI 1.95 cm2 AoV Area/ BSA (VTI) 1.02 cm/m2 Mitral Valve MV DT 312 (160-240 msec) MV PHT 91 msec MV Area PHT 2.43 cm2 MV VTI 0.364 m MV Area VTI 2.31 (4.0-6.0 cm2) Pulmonary Valve PV Vmax 1.48 (0.5-1.5 m/s) RVOT Peak Gr. 3.28 mmHg PV Peak Grad 8.8 mmHg RVOT Mean Gr. 1.60 mmHg PV Mean Grad 5.1 mmHg RVOT VTI 0.119 m PV VTI 0.282 m RVOT Vmax 0.91 m/s
[2020-11-04 07:35] LABS: Anion Gap 0.7 mmol/L (3-11); BUN 25 mg/dL (7-18); C-Reactive Protein 0.78 mg/dL (0.0-0.3); CO2 37.3 mmol/L (21.0-32.0); CREATININE 0.7 mg/dL (0.70-1.30); Calcium 7.9 mg/dL (8.5-10.1); Chloride 106 mmol/L (98-107); Glucose 99 mg/dL (74-106); Potassium 3.9 mmol/L (3.5-5.1); Sodium 144 mmol/L (136-145)
[2020-11-04] MEDS: Tamsulosin 0.4 MG CAPCR 0.8 MG PO (07:45)
[2020-11-04] MEDS: predniSONE 20 MG TAB 40 MG PO (07:45)
[2020-11-04] MEDS: Apixaban 5 MG TAB PO ×2 (07:45→20:03)
[2020-11-04] MEDS: LORazepam 1 MG TAB PO ×2 (07:45→20:03)
[2020-11-04] MEDS: Furosemide 40 MG TAB PO (07:45)
[2020-11-04 07:51] LABS: Procalcitonin < 0.1 ng/mL
[2020-11-04] MEDS: Budesonide/Formoterol 80/4.5 6.9 GM 60 PUFF INH IH ×2 (07:51→20:15)
--- NOTE | 2020-11-04 10:10 | CMPROGNOTE_ITS ---
- If Service Date Differs Date of service: 11/04/20 Time of Service: 10:10 Care Management Progress Note S/O: Marc was sitting up in bed, visiting with his when CM met with him. He was pleasant and cooperative. He shared that he lives in [place] and would like to change his PCP to a practice affiliated with [facility]. He was provided with a list of providers at [facility] and [facility]. He will let CM know which practice he chooses and CM can help support the process. A:Marc is a 70 year old man admitted on 10/29/20 with exacerbation of COPD P: Marc will likely return home with no new services. He will follow up with his community provider (and/or establish care with a new provider), plan of care and transport home with family. CM will continue to support Marc and assess for discharge planning needs.
[2020-11-04] MEDS: Tiotropium Bromide-Respimat 10 PUFF INH 2 PUFF IH (10:45)
--- NOTE | 2020-11-04 11:02 | PT.INTREAT ---
Date of service: 11/04/20 PT Notes Visit Reasons: Exacerbation COPD, Hypoxemia, Chronic Resp failure Inpatient Physical Therapy Treatment Note [facility] Date: 11/04/20 PRECAUTIONS: Activity as tolerated. SUBJECTIVE: States that anxiety really gets to him and increases his shortness of breath. Is satisfied to know that his oxygen and heart rate remains within normal limits even with ambulation performance. Agreeable with going home with a 4-wheeled walker to conserve his energy with walking. States that he has been on chronic oxygen supplementation at 2 L/min prior to admission. Reports that provides needed help with meals but does not help with bathing and dressing. OBJECTIVE: Saturating at 89% on room air at rest upon arrival of PT. Bed Mobility/Transfers: Supine-sit: Independent Sit-stand: Independent Stand-sit: Supervision Sit-stand: Supervision GAIT Assistive Device: 4WW Weight bearing: FWB Assist: Stand by assist Distance: 100 feet x 2. On 2 L/min from his room to the therapy room, 97% throughout. On room air, from the gym back to his room 92%-94%. However got anxious briefly but was relieved seeing how his oxygen saturation and heart remains within exercising limits. Gait pattern unremarkable. Required 3-5 minutes rest after walking activty to manage anxiety level. STAIRS: UP and down 12 x 4-inch stairs and 8 x 6-inch stairs while holding onto B rails with supervision saturating at 95% on room air. Octavia reduced. Minimal cues given for deep breathing exercises during activity performance. ASSESSMENT: Anxiety limiting mobility performance despite oxygen saturation and heart rate remaining within acceptable levels. May go home with when medically cleared by MD with PT services. PLAN: Continue with PT POC with emphasis on increasing safety of mobility performance. Progress stair negotiation tolerance as able. TREATMENT CODE/TIME: 26515 x 53 minutes beginning at 11:02 AM.
--- NOTE | 2020-11-04 11:08 | W.UROLOGYCON ---
Date of service: 11/04/20 Time of Service: 11:09 Assessment and Plan Assessment and plan (1) Urinary retention with incomplete bladder emptying: Status: Acute Assessment and plan: His voiding symptom him sound chronic in that he can have a significant volume of urine in the bladder with no real sensation of needing to void. His ability to empty may have worsened recently with worsening bowel function. We generally wait 3 to 5 days after any change in alpha-gilbert dosing before giving another voiding trial. I would postpone an additional day or 2 if his bowels have not been regulated. If he still unable to urinate, ideally, intermittent catheterization is a better option compared to a chronic indwelling catheter. I would plan on the higher dose of Flomax, timed voiding (asking the patient to attempt to void every 4 hours while he is awake even if he does not have the sensation of needing to void) and intermittent catheterization to manage his symptoms. History of Present Illness History of Present Illness Chief Complaint: Incomplete bladder emptying. Narrative: This is a 70-year-old gentleman who is currently hospitalized with respiratory complaints. This is his first medical encounter at our facility, so I do not have access to any of his old records. I have been asked to see him when he was found to have high residual urines after voiding. From his hospital records, it looks like he has routinely had post void residual urines in the 300 to 400 cc range. There is an indication that a Hudson catheter was placed when his bladder volume was over 1000 cc. I was not able to find EMR documentation of this particular bladder volume. The patient tells me that he has been having urinary hesitancy and slowing of his urinary stream for a few months now. He had been on tamsulosin 0.4 mg daily at the time of his admission. His dose has been increased to 0.8 mg for the past 2 days. He is not aware of any previous episodes of retention or urinary tract infection. He has never had any type of urologic surgeries. On his admission history and physical, there is an indication that he will be seen by the urology service closer to home, but the patient tells me he has never seen a urologist before. His Flomax was started by his PCP. He has no history of neurologic disorders such as strokes or spinal cord disease. He tells me that since he has been hospitalized, he has had difficulty moving his bowels. Constipation has not been an issue for him at home. He reports that his mobility is poor due to his respiratory issues. He has trouble ambulating to the restroom, but he is able to stand and use a urinal at the bedside. Review of Systems Narrative: No vision change or dysphasia No diabetes or thyroid dysfunction Shortness of breath and sleep apnea. Productive cough. No hemoptysis No chest pain or palpitations No nausea, vomiting, hepatitis, ulcers, jaundice No seizures, strokes or peripheral neuropathy No bleeding disorders or anemia No gout [facility] Medical History (Updated 11/03/20 @ 18:06 by Dejah Castro NP) Abdominal pain Blood coagulation disorder BPH without obstruction/lower urinary tract symptoms Chest pain Chronic respiratory failure with hypercapnia Closed fracture of middle and/or proximal phalanx of finger COPD (chronic obstructive pulmonary disease) COPD (chronic obstructive pulmonary disease) with emphysema Depressive disorder Epigastric pain High cholesterol Hypoxemia Impotence Localized edema Low back pain Ophthalmic herpes simplex Pain in joint of left shoulder Palliative care patient Tobacco use disorder Social History Smoking/Tobacco Use Status: Former Tobacco Use Quit Date: 10/26/20 Tobacco: How many years used: 50 Smoking risk assessment performed?: Yes Alcohol Intake: current Alcohol Intake frequency: holidays/special occasions only Alcohol type: beer and hard liquor Drug use: Daily Substance use type: marijuana Details: pt states I try to do it once a day but I haven't been able to lately. Do you feel safe at home: Yes Do you feel safe in your relationship?: Yes Exam Const Other: He appears older than his stated age He appears short of breath at rest His vital signs are documented elsewhere His abdomen is soft with no mass His catheter is draining clear urine He is awake and alert I viewed his renal ultrasound on the PACS system. There is no hydronephrosis or evidence of parenchymal thinning. His renal function has remained stable throughout his hospitalization. Results Last Vital Signs Temp 36.9 C 11/04/20 07:46 Pulse 95 H 11/04/20 10:47 Resp 28 H 11/04/20 10:47 BP 110/69 11/04/20 07:46 Pulse Ox 98 11/04/20 10:48 Labs Result diagrams: 11/04/20 06:33 11/04/20 06:33 Labs: Laboratory Results - last 24 hr 11/03/20 11/04/20 11/04/20 13:08 06:33 06:33 WBC 6.91 RBC 3.61 L Hgb 11.6 L Hct 36.4 L MCV 100.8 H MCH 32.1 MCHC 31.9 L RDW 12.7 Plt Count 144 MPV 9.5 Immature Gran % 0.9 Neutrophils % 81.6 Lymphocytes % 9.6 Monocytes % 6.5 Eosinophils % 1.3 Basophils % 0.1 Nucleated RBC % 0 Absolute Neutrophils 5.64 Absolute Lymphocytes 0.66 L Absolute Monocytes 0.45 Absolute Eosinophils 0.09 Absolute Basophils 0.01 Sodium 144 Potassium 3.9 Chloride 106 Carbon Dioxide 37.3 H Anion Gap 0.7 L BUN 25 H Creatinine 0.7 Estimated GFR/1.73 m2 >= 60.00 Glucose 99 Calcium 7.9 L C-Reactive Protein 0.78 H Procalcitonin Urine Color Yellow Urine Clarity Clear Urine pH 5.5 Ur Specific [place] 1.020 Urine Protein Negative Urine Ketones Negative Urine Blood Moderate H Urine Nitrite Negative Urine Bilirubin Negative Urine Urobilinogen 0.2 Ur Leukocyte Esterase Negative Urine RBC 10-20 H Urine WBC Negative Ur Epithelial Cells Few Urine Crystals Negative Urine Bacteria Negative Urine Casts Negative Urine Mucus Negative Urine Other Few Transitional Ur Culture Indicated? No Urine Glucose Negative 11/04/20 06:33 WBC RBC Hgb Hct MCV MCH MCHC RDW Plt Count MPV Immature Gran % Neutrophils % Lymphocytes % Monocytes % Eosinophils % Basophils % Nucleated RBC % Absolute Neutrophils Absolute Lymphocytes Absolute Monocytes Absolute Eosinophils Absolute Basophils Sodium Potassium Chloride Carbon Dioxide Anion Gap BUN Creatinine Estimated GFR/1.73 m2 Glucose Calcium C-Reactive Protein Procalcitonin < 0.1 Urine Color Urine Clarity Urine pH Ur Specific [place] Urine Protein Urine Ketones Urine Blood Urine Nitrite Urine Bilirubin Urine Urobilinogen Ur Leukocyte Esterase Urine RBC Urine WBC Ur Epithelial Cells Urine Crystals Urine Bacteria Urine Casts Urine Mucus Urine Other Ur Culture Indicated? Urine Glucose
--- NOTE | 2020-11-04 12:48 | PGE_ITS ---
General Date Of Service Date of service: 11/04/20 Time of Service: 12:30 Requesting physician: Dejah Castro Subjective Note Note: Marc is doing well today. When I saw him he was satting appropriately on room air. He feels as though he has been improving slowly throughout his stay at the hospital. We discussed the risks associated with inappropriate oxygen administration as he is currently using his friend's oxygen supply without having formally been evaluated for necessity. Exam Const General: no acute distress Nutritional Appearance: well nourished [facility] Head: normocephalic Ears: external ears normal and no periauricular adenopathy General nose exam: nasal mucous membranes and turbinates normal Face and sinus: sinuses nontender Mouth: oropharynx normal and moist mucous membranes Teeth and gingiva: dentition normal Eyes General: appearance normal, both eyes and all related structures Pupils: PERRL Neck Neck: normal visual inspection and no lymphadenopathy Chest Chest: normal inspection of the chest Resp Effort & Inspection: normal respiratory effort Auscultation: rales (Scattered that clear with cough and inspiration), no rhonchi and no wheezes Cardio Rate: regular rate Rhythm: regular rhythm Heart Sounds: S1 normal, S2 normal and no murmurs Pulses: radial pulses present bilaterally GI Inspection: normal to inspection Palpation: soft Skin General skin exam: no rashes or lesions noted Neuro General: patient alert, patient awake and patient oriented x3 Extrem General: no clubbing, cyanosis or edema Psych Mental Status: mental status grossly normal Affect: normal affect Attitude: cooperative Objective Last Vital Signs Temp 36.6 C 11/04/20 11:30 Pulse 95 H 11/04/20 11:30 Resp 18 11/04/20 11:30 BP 121/74 11/04/20 11:30 Pulse Ox 94 11/04/20 11:30 Laboratory Results - last 24 hr 11/03/20 11/04/20 11/04/20 13:08 06:33 06:33 WBC 6.91 RBC 3.61 L Hgb 11.6 L Hct 36.4 L MCV 100.8 H MCH 32.1 MCHC 31.9 L RDW 12.7 Plt Count 144 MPV 9.5 Immature Gran % 0.9 Neutrophils % 81.6 Lymphocytes % 9.6 Monocytes % 6.5 Eosinophils % 1.3 Basophils % 0.1 Nucleated RBC % 0 Absolute Neutrophils 5.64 Absolute Lymphocytes 0.66 L Absolute Monocytes 0.45 Absolute Eosinophils 0.09 Absolute Basophils 0.01 Sodium 144 Potassium 3.9 Chloride 106 Carbon Dioxide 37.3 H Anion Gap 0.7 L BUN 25 H Creatinine 0.7 Estimated GFR/1.73 m2 >= 60.00 Glucose 99 Calcium 7.9 L C-Reactive Protein 0.78 H Procalcitonin Urine Color Yellow Urine Clarity Clear Urine pH 5.5 Ur Specific [place] 1.020 Urine Protein Negative Urine Ketones Negative Urine Blood Moderate H Urine Nitrite Negative Urine Bilirubin Negative Urine Urobilinogen 0.2 Ur Leukocyte Esterase Negative Urine RBC 10-20 H Urine WBC Negative Ur Epithelial Cells Few Urine Crystals Negative Urine Bacteria Negative Urine Casts Negative Urine Mucus Negative Urine Other Few Transitional Ur Culture Indicated? No Urine Glucose Negative 11/04/20 06:33 WBC RBC Hgb Hct MCV MCH MCHC RDW Plt Count MPV Immature Gran % Neutrophils % Lymphocytes % Monocytes % Eosinophils % Basophils % Nucleated RBC % Absolute Neutrophils Absolute Lymphocytes Absolute Monocytes Absolute Eosinophils Absolute Basophils Sodium Potassium Chloride Carbon Dioxide Anion Gap BUN Creatinine Estimated GFR/1.73 m2 Glucose Calcium C-Reactive Protein Procalcitonin < 0.1 Urine Color Urine Clarity Urine pH Ur Specific [place] Urine Protein Urine Ketones Urine Blood Urine Nitrite Urine Bilirubin Urine Urobilinogen Ur Leukocyte Esterase Urine RBC Urine WBC Ur Epithelial Cells Urine Crystals Urine Bacteria Urine Casts Urine Mucus Urine Other Ur Culture Indicated? Urine Glucose Results Medications Medications: Active Medications Generic Name Dose Route Start Last Admin Trade Name Freq PRN Reason Stop Dose Admin Acetaminophen 650 mg 10/29/20 21:35 11/03/20 20:42 Acetaminophen 325 Mg Tab PO 650 mg Q4H PRN PRN Administration Al Hydrox/Mg Hydrox/Simethicone 30 ml 10/29/20 21:35 Mylanta Suspension 30 Ml Cup PO Q2H PRN PRN Albuterol Sulfate 2.5 mg 10/29/20 21:29 11/01/20 20:15 Albuterol 2.5 Mg/3 Ml Inh Soln Vial UPD 2.5 mg Q2H PRN PRN Administration Albuterol/Ipratropium 3 ml 10/29/20 22:00 11/04/20 10:37 Albuterol/Ipratropium 3 Ml Upd Vial UPD 3 ml Q6H LESLEY Administration Apixaban 5 mg 10/30/20 08:30 11/04/20 07:45 Apixaban 5 Mg Tab PO 5 mg BID LESLEY Administration Budesonide/Formoterol Fumarate 2 puff 11/02/20 20:00 11/04/20 07:51 Budesonide/Formoterol 80/4.5 6.9 Gm 60 Puff Inh IH 2 puffs BID LESLEY Administration Device 1 each 10/31/20 16:00 Inhaler, Assist Device DIRECTED LESLEY Dimethicone/Zinc Oxide 0 gm 10/29/20 21:29 David Protect Cream 142 Gm Tube TP PRN PRN Docusate Sodium 100 mg 10/29/20 21:35 11/02/20 08:43 Docusate Sodium 100 Mg Cap PO 100 mg TID PRN PRN Administration Furosemide 40 mg 10/30/20 08:30 11/04/20 07:45 Furosemide 40 Mg Tab PO 40 mg DAILY LESLEY Administration Sodium Chloride 500 mls @ 0 mls/hr 10/29/20 21:29 10/31/20 02:56 Saline 500ml Bag IV 0 mls/hr PRN PRN Infusion As Directed Cefepime HCl 2 gm/ Sodium 100 mls @ 200 mls/hr 11/03/20 14:00 11/04/20 05:06 Chloride IVPB 200 mls/hr Q8H LESLEY Administration Vancomycin/PEG/NADA/Lysine/Water 1.5 gm in 300 mls @ 200 mls/hr 11/03/20 12:00 11/04/20 12:34 Vancocin Injection IV 200 mls/hr Q12H LESLEY Administration Protocol IV Miscellaneous Supplies 1 each 10/29/20 21:30 Iv Access IV DIRECTED LESLEY Lorazepam 1 mg 11/01/20 20:00 11/04/20 07:45 Lorazepam 1 Mg Tab PO 1 mg BID LESLEY Administration Lorazepam 1 mg 11/01/20 16:04 11/03/20 14:06 Lorazepam 1 Mg Tab PO 1 mg BID PRN PRN Administration Magnesium Hydroxide 30 ml 10/29/20 21:35 Milk Of Magnesia 30 Ml Cup PO DAILY PRN PRN Nicotine 21 mg 10/29/20 21:35 10/30/20 22:53 Nicotine 21 Mg/24 Hr Patch TD 21 mg DAILY PRN PRN Administration Polyethylene Glycol 17 gm 10/29/20 21:35 11/02/20 08:43 Polyethylene Glycol 3350 17 Gm Packet PO 17 gm DAILY PRN PRN Administration Constipation Prednisone 40 mg 11/03/20 08:30 11/04/20 07:45 Prednisone 20 Mg Tab PO 40 mg DAILY LESLEY Administration Sertraline HCl 50 mg/ 75 mg 11/01/20 16:10 11/04/20 07:45 Sertraline HCl 25 mg PO 75 mg DAILY LESLEY Administration Sodium Chloride 0 ml 10/29/20 21:29 11/03/20 23:23 Normal Saline Flush 10 Ml Syr IVP 10 ml PRN PRN Administration Tamsulosin HCl 0.8 mg 11/01/20 08:30 11/04/20 07:45 Tamsulosin 0.4 Mg Capcr PO 0.8 mg DAILY LESLEY Administration Terazosin HCl 4 mg 10/29/20 22:00 11/03/20 23:23 Terazosin 2 Mg Cap PO 4 mg HS LESLEY Administration Tiotropium [place] 2 puff 11/03/20 08:30 11/04/20 10:45 Tiotropium [place]-Respimat 10 Puff Inh IH 2 puff DAILY LESLEY Administration Allergies No Known Allergies Allergy (Unverified 10/29/20 22:55) Labs Result Diagrams: 11/04/20 06:33 11/04/20 06:33 Labs: 11/03/20 13:08 Urine - Cath [place] Indwelling Urine Culture - Preliminary 11/03/20 13:05 Blood Blood Culture - Pending 11/03/20 12:53 Blood Blood Culture - Pending Laboratory Tests Range/Units 10/29/20 10/30/20 10/30/20 21:45 07:29 07:29 WBC (4.4-10.8) 10^3/uL 5.50 RBC (4.36-5.78) 10^6/uL 3.85 L Hgb (13.5-17.5) g/dL 12.5 L Hct (40.0-50.0) % 37.8 L MCV (80-95) fL 98.2 H MCH (27.0-33.0) pg 32.5 MCHC (32.0-36.0) % 33.1 RDW (11.8-14.1) % 12.4 Plt Count (130-400) 10^3/uL 163 MPV (8.0-11.0) fL 9.5 Immature Gran % 0.2 Neutrophils % 96.6 Lymphocytes % 2.5 Monocytes % 0.7 Eosinophils % 0.0 Basophils % 0.0 Nucleated RBC % % 0 Absolute Neutrophils (1.2-6.7) 10^3/uL 5.31 Absolute Lymphocytes (1.2-3.4) 10^3/uL 0.14 L Absolute Monocytes (0.1-0.8) 10^3/uL 0.04 L Absolute Eosinophils (0.0-0.7) 10^3/uL 0.00 Absolute Basophils (0.0-0.2) 10^3/uL 0.00 ABG Sample Site ABG pH (7.35-7.45) ABG pCO2 (35-45) mmHg ABG pO2 (80-105) mmHg ABG HCO3 (22-26) mmol/L ABG Total CO2 (23-27) mmol/L ABG O2 Saturation (95-98) % ABG Base Excess (-2-3) mmol/L FiO2 % Sodium (136-145) mmol/L 142 Potassium (3.5-5.1) mmol/L 4.3 Chloride (98-107) mmol/L 103 Carbon Dioxide (21.0-32.0) mmol/L 37.0 H Anion Gap (3-11) mmol/L 2.0 L BUN (7-18) mg/dL 18 Creatinine (0.70-1.30) mg/dL 0.7 Estimated GFR/1.73 m2 (mL/min/1.73m2) >= 60.00 Glucose (74-106) mg/dL 147 H Calcium (8.5-10.1) mg/dL 8.7 Magnesium (1.8-2.4) mg/dL Total Bilirubin (0.2-1.0) mg/dL 0.5 AST (15-37) U/L 11 L ALT (16-63) U/L 29 Alkaline Phosphatase (46-116) U/L 44 L C-Reactive Protein (0.0-0.3) mg/dL NT-Pro-B Natriuret Pep (<300) pg/mL Total Protein (6.4-8.2) g/dL 5.8 L Albumin (3.4-5.0) g/dL 3.0 L Procalcitonin ng/mL Urine Color (Yellow) Urine Clarity (Clear) Urine pH (5-8) Ur Specific [place] (1.005-1.025) Urine Protein (Negative) mg/dL Urine Ketones (Negative) mg/dL Urine Blood (Negative) Urine Nitrite (Negative) Urine Bilirubin (Negative) Urine Urobilinogen (Up TO 0.2) EU/dL Ur Leukocyte Esterase (Negative) Urine RBC (0-2) HPF Urine WBC (0-5) HPF Ur Epithelial Cells (Negative) HPF Urine Crystals (Negative) HPF Urine Bacteria (Negative) HPF Urine Casts (Negative) LPF Urine Mucus (Negative) Urine Other (Negative) Ur Culture Indicated? Urine Glucose (Negative) mg/dL COVID-19 Source Nasal/Nares SARS-CoV-2 (PCR) (Negative) Negative Range/Units 11/01/20 11/01/20 11/02/20 08:30 08:30 06:43 WBC (4.4-10.8) 10^3/uL 12.18 H RBC (4.36-5.78) 10^6/uL 4.14 L Hgb (13.5-17.5) g/dL 13.5 Hct (40.0-50.0) % 41.4 MCV (80-95) fL 100.0 H MCH (27.0-33.0) pg 32.6 MCHC (32.0-36.0) % 32.6 RDW (11.8-14.1) % 12.8 Plt Count (130-400) 10^3/uL 156 MPV (8.0-11.0) fL 9.5 Immature Gran % 0.5 Neutrophils % 96.8 Lymphocytes % 1.1 Monocytes % 1.6 Eosinophils % 0.0 Basophils % 0.0 Nucleated RBC % % 0 Absolute Neutrophils (1.2-6.7) 10^3/uL 11.79 H Absolute Lymphocytes (1.2-3.4) 10^3/uL 0.13 L Absolute Monocytes (0.1-0.8) 10^3/uL 0.19 Absolute Eosinophils (0.0-0.7) 10^3/uL 0.00 Absolute Basophils (0.0-0.2) 10^3/uL 0.00 ABG Sample Site ABG pH (7.35-7.45) ABG pCO2 (35-45) mmHg ABG pO2 (80-105) mmHg ABG HCO3 (22-26) mmol/L ABG Total CO2 (23-27) mmol/L ABG O2 Saturation (95-98) % ABG Base Excess (-2-3) mmol/L FiO2 % Sodium (136-145) mmol/L 145 143 Potassium (3.5-5.1) mmol/L 4.4 4.7 Chloride (98-107) mmol/L 106 105 Carbon Dioxide (21.0-32.0) mmol/L 35.9 H 36.5 H Anion Gap (3-11) mmol/L 3.1 1.5 L BUN (7-18) mg/dL 26 H 29 H Creatinine (0.70-1.30) mg/dL 0.8 0.8 Estimated GFR/1.73 m2 (mL/min/1.73m2) >= 60.00 >= 60.00 Glucose (74-106) mg/dL 142 H 161 H Calcium (8.5-10.1) mg/dL 8.9 8.4 L Magnesium (1.8-2.4) mg/dL 2.2 Total Bilirubin (0.2-1.0) mg/dL AST (15-37) U/L ALT (16-63) U/L Alkaline Phosphatase (46-116) U/L C-Reactive Protein (0.0-0.3) mg/dL NT-Pro-B Natriuret Pep (<300) pg/mL 267 Total Protein (6.4-8.2) g/dL Albumin (3.4-5.0) g/dL Procalcitonin ng/mL Urine Color (Yellow) Urine Clarity (Clear) Urine pH (5-8) Ur Specific [place] (1.005-1.025) Urine Protein (Negative) mg/dL Urine Ketones (Negative) mg/dL Urine Blood (Negative) Urine Nitrite (Negative) Urine Bilirubin (Negative) Urine Urobilinogen (Up TO 0.2) EU/dL Ur Leukocyte Esterase (Negative) Urine RBC (0-2) HPF Urine WBC (0-5) HPF Ur Epithelial Cells (Negative) HPF Urine Crystals (Negative) HPF Urine Bacteria (Negative) HPF Urine Casts (Negative) LPF Urine Mucus (Negative) Urine Other (Negative) Ur Culture Indicated? Urine Glucose (Negative) mg/dL COVID-19 Source SARS-CoV-2 (PCR) (Negative) Range/Units 11/02/20 11/02/20 11/03/20 06:43 12:25 06:58 WBC (4.4-10.8) 10^3/uL 8.64 RBC (4.36-5.78) 10^6/uL 3.88 L Hgb (13.5-17.5) g/dL 12.5 L Hct (40.0-50.0) % 38.5 L MCV (80-95) fL 99.2 H MCH (27.0-33.0) pg 32.2 MCHC (32.0-36.0) % 32.5 RDW (11.8-14.1) % 12.8 Plt Count (130-400) 10^3/uL 143 MPV (8.0-11.0) fL 9.6 Immature Gran % 0.5 Neutrophils % 95.1 Lymphocytes % 1.5 Monocytes % 2.8 Eosinophils % 0.0 Basophils % 0.1 Nucleated RBC % % 0 Absolute Neutrophils (1.2-6.7) 10^3/uL 8.22 H Absolute Lymphocytes (1.2-3.4) 10^3/uL 0.13 L Absolute Monocytes (0.1-0.8) 10^3/uL 0.24 Absolute Eosinophils (0.0-0.7) 10^3/uL 0.00 Absolute Basophils (0.0-0.2) 10^3/uL 0.01 ABG Sample Site Left Radial ABG pH (7.35-7.45) 7.40 ABG pCO2 (35-45) mmHg 65 H* ABG pO2 (80-105) mmHg 46 L ABG HCO3 (22-26) mmol/L 40 H ABG Total CO2 (23-27) mmol/L 36 H ABG O2 Saturation (95-98) % 84 L ABG Base Excess (-2-3) mmol/L > 15 H FiO2 % 21 Sodium (136-145) mmol/L 144 Potassium (3.5-5.1) mmol/L 4.3 Chloride (98-107) mmol/L 105 Carbon Dioxide (21.0-32.0) mmol/L 39.8 H Anion Gap (3-11) mmol/L -0.8 L BUN (7-18) mg/dL 24 H Creatinine (0.70-1.30) mg/dL 0.7 Estimated GFR/1.73 m2 (mL/min/1.73m2) >= 60.00 Glucose (74-106) mg/dL 103 D Calcium (8.5-10.1) mg/dL 8.2 L Magnesium (1.8-2.4) mg/dL Total Bilirubin (0.2-1.0) mg/dL AST (15-37) U/L ALT (16-63) U/L Alkaline Phosphatase (46-116) U/L C-Reactive Protein (0.0-0.3) mg/dL NT-Pro-B Natriuret Pep (<300) pg/mL Total Protein (6.4-8.2) g/dL Albumin (3.4-5.0) g/dL Procalcitonin ng/mL Urine Color (Yellow) Urine Clarity (Clear) Urine pH (5-8) Ur Specific [place] (1.005-1.025) Urine Protein (Negative) mg/dL Urine Ketones (Negative) mg/dL Urine Blood (Negative) Urine Nitrite (Negative) Urine Bilirubin (Negative) Urine Urobilinogen (Up TO 0.2) EU/dL Ur Leukocyte Esterase (Negative) Urine RBC (0-2) HPF Urine WBC (0-5) HPF Ur Epithelial Cells (Negative) HPF Urine Crystals (Negative) HPF Urine Bacteria (Negative) HPF Urine Casts (Negative) LPF Urine Mucus (Negative) Urine Other (Negative) Ur Culture Indicated? Urine Glucose (Negative) mg/dL COVID-19 Source SARS-CoV-2 (PCR) (Negative) Range/Units 11/03/20 11/03/20 11/04/20 06:58 13:08 06:33 WBC (4.4-10.8) 10^3/uL 7.84 RBC (4.36-5.78) 10^6/uL 3.69 L Hgb (13.5-17.5) g/dL 11.9 L Hct (40.0-50.0) % 37.5 L MCV (80-95) fL 101.6 H MCH (27.0-33.0) pg 32.2 MCHC (32.0-36.0) % 31.7 L RDW (11.8-14.1) % 12.8 Plt Count (130-400) 10^3/uL 146 MPV (8.0-11.0) fL 9.6 Immature Gran % 0.8 Neutrophils % 83.5 Lymphocytes % 9.4 Monocytes % 5.7 Eosinophils % 0.5 Basophils % 0.1 Nucleated RBC % % 0 Absolute Neutrophils (1.2-6.7) 10^3/uL 6.54 Absolute Lymphocytes (1.2-3.4) 10^3/uL 0.74 L Absolute Monocytes (0.1-0.8) 10^3/uL 0.45 Absolute Eosinophils (0.0-0.7) 10^3/uL 0.04 Absolute Basophils (0.0-0.2) 10^3/uL 0.01 ABG Sample Site ABG pH (7.35-7.45) ABG pCO2 (35-45) mmHg ABG pO2 (80-105) mmHg ABG HCO3 (22-26) mmol/L ABG Total CO2 (23-27) mmol/L ABG O2 Saturation (95-98) % ABG Base Excess (-2-3) mmol/L FiO2 % Sodium (136-145) mmol/L 144 Potassium (3.5-5.1) mmol/L 3.9 Chloride (98-107) mmol/L 106 Carbon Dioxide (21.0-32.0) mmol/L 37.3 H Anion Gap (3-11) mmol/L 0.7 L BUN (7-18) mg/dL 25 H Creatinine (0.70-1.30) mg/dL 0.7 Estimated GFR/1.73 m2 (mL/min/1.73m2) >= 60.00 Glucose (74-106) mg/dL 99 Calcium (8.5-10.1) mg/dL 7.9 L Magnesium (1.8-2.4) mg/dL Total Bilirubin (0.2-1.0) mg/dL AST (15-37) U/L ALT (16-63) U/L Alkaline Phosphatase (46-116) U/L C-Reactive Protein (0.0-0.3) mg/dL 0.78 H NT-Pro-B Natriuret Pep (<300) pg/mL Total Protein (6.4-8.2) g/dL Albumin (3.4-5.0) g/dL Procalcitonin ng/mL Urine Color (Yellow) Yellow Urine Clarity (Clear) Clear Urine pH (5-8) 5.5 Ur Specific [place] (1.005-1.025) 1.020 Urine Protein (Negative) mg/dL Negative Urine Ketones (Negative) mg/dL Negative Urine Blood (Negative) Moderate H Urine Nitrite (Negative) Negative Urine Bilirubin (Negative) Negative Urine Urobilinogen (Up TO 0.2) EU/dL 0.2 Ur Leukocyte Esterase (Negative) Negative Urine RBC (0-2) HPF 10-20 H Urine WBC (0-5) HPF Negative Ur Epithelial Cells (Negative) HPF Few Urine Crystals (Negative) HPF Negative Urine Bacteria (Negative) HPF Negative Urine Casts (Negative) LPF Negative Urine Mucus (Negative) Negative Urine Other (Negative) Few Transitional Ur Culture Indicated? No Urine Glucose (Negative) mg/dL Negative COVID-19 Source SARS-CoV-2 (PCR) (Negative) Range/Units 11/04/20 11/04/20 06:33 06:33 WBC (4.4-10.8) 10^3/uL 6.91 RBC (4.36-5.78) 10^6/uL 3.61 L Hgb (13.5-17.5) g/dL 11.6 L Hct (40.0-50.0) % 36.4 L MCV (80-95) fL 100.8 H MCH (27.0-33.0) pg 32.1 MCHC (32.0-36.0) % 31.9 L RDW (11.8-14.1) % 12.7 Plt Count (130-400) 10^3/uL 144 MPV (8.0-11.0) fL 9.5 Immature Gran % 0.9 Neutrophils % 81.6 Lymphocytes % 9.6 Monocytes % 6.5 Eosinophils % 1.3 Basophils % 0.1 Nucleated RBC % % 0 Absolute Neutrophils (1.2-6.7) 10^3/uL 5.64 Absolute Lymphocytes (1.2-3.4) 10^3/uL 0.66 L Absolute Monocytes (0.1-0.8) 10^3/uL 0.45 Absolute Eosinophils (0.0-0.7) 10^3/uL 0.09 Absolute Basophils (0.0-0.2) 10^3/uL 0.01 ABG Sample Site ABG pH (7.35-7.45) ABG pCO2 (35-45) mmHg ABG pO2 (80-105) mmHg ABG HCO3 (22-26) mmol/L ABG Total CO2 (23-27) mmol/L ABG O2 Saturation (95-98) % ABG Base Excess (-2-3) mmol/L FiO2 % Sodium (136-145) mmol/L Potassium (3.5-5.1) mmol/L Chloride (98-107) mmol/L Carbon Dioxide (21.0-32.0) mmol/L Anion Gap (3-11) mmol/L BUN (7-18) mg/dL Creatinine (0.70-1.30) mg/dL Estimated GFR/1.73 m2 (mL/min/1.73m2) Glucose (74-106) mg/dL Calcium (8.5-10.1) mg/dL Magnesium (1.8-2.4) mg/dL Total Bilirubin (0.2-1.0) mg/dL AST (15-37) U/L ALT (16-63) U/L Alkaline Phosphatase (46-116) U/L C-Reactive Protein (0.0-0.3) mg/dL NT-Pro-B Natriuret Pep (<300) pg/mL Total Protein (6.4-8.2) g/dL Albumin (3.4-5.0) g/dL Procalcitonin ng/mL < 0.1 Urine Color (Yellow) Urine Clarity (Clear) Urine pH (5-8) Ur Specific [place] (1.005-1.025) Urine Protein (Negative) mg/dL Urine Ketones (Negative) mg/dL Urine Blood (Negative) Urine Nitrite (Negative) Urine Bilirubin (Negative) Urine Urobilinogen (Up TO 0.2) EU/dL Ur Leukocyte Esterase (Negative) Urine RBC (0-2) HPF Urine WBC (0-5) HPF Ur Epithelial Cells (Negative) HPF Urine Crystals (Negative) HPF Urine Bacteria (Negative) HPF Urine Casts (Negative) LPF Urine Mucus (Negative) Urine Other (Negative) Ur Culture Indicated? Urine Glucose (Negative) mg/dL COVID-19 Source SARS-CoV-2 (PCR) (Negative) Assessment and Plan Assessment and plan (1) COPD exacerbation: Status: Acute (2) Acute and chronic respiratory failure, unspecified whether with hypoxia or hypercapnia: Status: Acute Qualifiers: Respiratory failure complication: hypoxia and hypercapnia Qualified Code(s): J96.21 - Acute and chronic respiratory failure with hypoxia; J96.22 - Acute and chronic respiratory failure with hypercapnia (3) Tobacco use disorder: Status: Chronic Assessment and plan: This is a 70-year-old man with severe COPD who has ne juan been followed by a vault worker. He is currently on Symbicort and Spiriva as well as nebulizers. He also continues to smoke and does not seem willing to quit at this time despite understanding it is making his breathing worse. There are some more advanced treatment options that can be offered to him given his severe lung disease however he will need a more formal pulmonary assessment as an outpatient to assess which options are best for him. This would include NIPPV such as Trilogy units. Qualification for NIPPV for the indication of severe COPD with chronic hypercapnic respiratory failure should be done 2-4 weeks after an acute exacerbation per ATS guidelines. When required this can decreased the frequency of hospitalizations in severe COPD patients. He also had received Mucomist nebulizer for secretions. I would recommend against future nebulizations of Mucomist (as well as the potential for bronchoscpasm) as there is no literature to suggest any benefit of this over simple Duonebs. COPD Exacerbation - continue Symbicort 80-4.5 dosing, 2 puffs bid - use spacer and rinse mouth after use - continue Spiriva - recommend continue Duonebs 3-4 times per day scheduled - continue albuterol HFA prn - recommend prednisone 40 mg for a total of 7 days, followed by 30 mg for 5 days, 20 mg for 4 days, 10 mg for 4 days, 5 mg for 4 days. - I have set up follow up for him in my clinic for next month Chronic hypoxic and hypercapnic respiratory failure - O2 as needed to maintain a saturation of 88-92% - consider ambulatory pulse ox prior to discharge to ensure no oxygen is required - I will assess his need for nocturnal NIPPV as an outpatient Current Smoker - would benefit from smoking cessation specialists at [facility] Thank you for this consultation, pulmonary to sign off. If any further questions or concerns, please feel free to reach out.
[2020-11-04] MEDS: Senna TAB 1 TAB PO (18:00)
--- NOTE | 2020-11-04 18:49 | PGE_ITS ---
Date of Service Date of service: 11/04/20 Time of Service: 18:49 Assessment and Plan Assessment and plan (1) Fever: Start date: 11/04/20 Start time: 19:03 Status: Resolved Assessment and plan: No source identified. CXR without acute process urine clear, urine cx without growth, blood cultures without any growth, d/c antibiotics after 48 hours if no growth due to over 5 days of antibx use Qualifiers: Fever type: unspecified Qualified Code(s): R50.9 - Fever, unspecified (2) Urinary retention with incomplete bladder emptying: Start date: 11/04/20 Start time: 19:08 Status: Acute Assessment and plan: Seen by Dr. Peguero today, increased flomax d/c silva in 3 days. Renal u/s without any obstruction. Continue intermittent cath when silva removed. (3) COPD exacerbation: Start date: 11/04/20 Start time: 19:10 Status: Acute Assessment and plan: Improved. LS diminished no wheezing, rhonchi or rales. On RA at rest F/u with Dr. East as an outpatient (4) Tobacco use disorder: Start date: 11/04/20 Start time: 19:12 Status: Chronic Assessment and plan: Per ready to quit has not smoked in three weeks (5) Acute and chronic respiratory failure, unspecified whether with hypoxia or hypercapnia: Start date: 11/04/20 Start time: 19:12 Status: Acute Assessment and plan: PFTs ordered echo : Conclusion Left Ventricle : The left ventricle is normal size. The left ventricular systolic function is normal. The left ventricular ejection fraction is within the normal range. There is normal left ventricular wall thickness. There is normal LV segmental wall motion. The left ventricular diastolic function is normal. LVEF is 57%. Right Ventricle : The right ventricle is normal size. The right ventricular systolic function is normal. Atria : The left atrium size is normal. The right atrium size is normal. Valves: There are no hemodynamically significant valvular lesions. Great Vessels : The aortic root is normal in size. Ascending aorta is not well visualized. IVC is normal in size and collapses >50% with inspiration. Please see remainder of study for further details. Unable to see if he has PHTN Qualifiers: Respiratory failure complication: hypoxia and hypercapnia Qualified Code(s): J96.21 - Acute and chronic respiratory failure with hypoxia; J96.22 - Acute and chronic respiratory failure with hypercapnia (6) Palliative care patient: Start date: 11/04/20 Start time: 19:14 Status: Acute Assessment and plan: Per Palliative Nikole Fruit Dumper Marc is a very pleasant 70 year old man with a past medical history significant for COPD, acute and chronic respiratory failure, chronically on oxygen, Protein C deficiency on anticoagulation, current smoker, BPH, who is currently in the hospital being treated for COPD exacerbation. He is not sure if he has ever had an echocardiogram. Palliative care was consulted to discuss goals of care and advanced care planning. He is feeling better overall. His goal is to save enough money for his final expenses so he does not leave his with the bill. He wants to be home at the end of life. He is interested in seeing Pulmonology to see what she has to offer. He wants to remain a FULL CODE at this time. We will continue to discuss advanced care planning and CODE status at future visits. Follow up in 2 months, sooner as needed. (7) Depression: Start date: 11/04/20 Start time: 19:14 Status: Chronic Assessment and plan: From chronic disease. Started on zoloft. Qualifiers: Depression Type: other depression Qualified Code(s): F32.89 - Other specified depressive episodes (8) Suicidal ideation: Start date: 11/04/20 Start time: 19:14 Status: Acute Assessment and plan: States no thoughts of SI. No active plan. He has safety plan with CM at this time he does not need CPSO. However if he becomes worse he will need cpso (9) DVT prophylaxis: Start date: 11/04/20 Start time: 19:14 Status: Acute Assessment and plan: On eliquis (10) Discharge planning issues: Start date: 11/04/20 Start time: 19:14 Status: Acute Assessment and plan: home with home health services. when medically ready above discussed with Dr. Blanc Subjective Subjective Patient reports: feels better Interval history since last seen: Sitting up in bed on RA, doing well. No complaints. LSC. Urine cx with no growth, blood cx with no growth to date. Patient had echo: Conclusion Left Ventricle : The left ventricle is normal size. The left ventricular systolic function is normal. The left ventricular ejection fraction is within the normal range. There is normal left ventricular wall thickness. There is normal LV segmental wall motion. The left ventricular diastolic function is normal. LVEF is 57%. Right Ventricle : The right ventricle is normal size. The right ventricular systolic function is normal. Atria : The left atrium size is normal. The right atrium size is normal. Valves: There are no hemodynamically significant valvular lesions. Great Vessels : The aortic root is normal in size. Ascending aorta is not well visualized. IVC is normal in size and collapses >50% with inspiration. Please see remainder of study for further details. Renal CT without obstruction Vanco dcd, will continue cefepime. Lung sounds diminished but improved. He denies CP, N/V/D. He has been afebrile since 11/03 1259. Exam Narrative Exam Narrative: General: appears older than stated age, laying in bed, alert and oriented, answers questions appropriately. HEENT: normocephalic, atraumatic, makes eye contact, mucous membranes moist. Neck: supple. Cardiovascular: heart sounds regular, nontachycardic. Respiratory: respirations appear labored with rest, he is at baseline, lung sounds diminished. GI: +BS, soft, nontender on palpation, nondistended. Extremities: 1+ pitting edema to BLEs. Skin on BLEs wrinkled. vascular discoloration Objective Last Vital Signs Temp 37.2 C 11/04/20 16:16 Pulse 87 11/04/20 17:58 Resp 28 H 11/04/20 17:58 BP 124/78 11/04/20 16:16 Pulse Ox 100 11/04/20 17:58 Laboratory Results - last 24 hr 11/04/20 11/04/20 11/04/20 06:33 06:33 06:33 WBC 6.91 RBC 3.61 L Hgb 11.6 L Hct 36.4 L MCV 100.8 H MCH 32.1 MCHC 31.9 L RDW 12.7 Plt Count 144 MPV 9.5 Immature Gran % 0.9 Neutrophils % 81.6 Lymphocytes % 9.6 Monocytes % 6.5 Eosinophils % 1.3 Basophils % 0.1 Nucleated RBC % 0 Absolute Neutrophils 5.64 Absolute Lymphocytes 0.66 L Absolute Monocytes 0.45 Absolute Eosinophils 0.09 Absolute Basophils 0.01 Sodium 144 Potassium 3.9 Chloride 106 Carbon Dioxide 37.3 H Anion Gap 0.7 L BUN 25 H Creatinine 0.7 Estimated GFR/1.73 m2 >= 60.00 Glucose 99 Calcium 7.9 L C-Reactive Protein 0.78 H Procalcitonin < 0.1
[2020-11-04] MEDS: Polyethylene Glycol 3350 17 GM PACKET PO (20:03)
[2020-11-04] MEDS: Furosemide 20 MG/2 ML VIAL IVP (20:03)
[2020-11-04] MEDS: Normal Saline Flush 10 ML SYR IVP (20:04)
[2020-11-04] MEDS: Terazosin 2 MG CAP 4 MG PO (22:57)
[2020-11-05] VITALS (9 sets, daily range): BP systolic 109–113; BP diastolic 64–69; PULSE 84–101; RESP 2–28; TEMP 36.8–37.3; O2SAT 90–99
[2020-11-05] MEDS: Acetaminophen 325 MG TAB 650 MG PO ×2 (03:50→15:43)
[2020-11-05] MEDS: CEFEPIME 2 GM in Normal Saline 100 ML IVPB ×2 (06:13→14:41)
[2020-11-05] MEDS: Albuterol/Ipratropium 3 ML UPD VIAL UPD ×2 (06:13→13:23)
[2020-11-05] MEDS: Budesonide/Formoterol 80/4.5 6.9 GM 60 PUFF INH IH (07:37)
[2020-11-05] MEDS: Tiotropium Bromide-Respimat 10 PUFF INH 2 PUFF IH (07:37)
--- NOTE | 2020-11-05 07:40 | W.PM.PROGNOT ---
Date of Service Date of service: 11/05/20 Time of Service: 07:40 Assessment and Plan Assessment and plan (1) Urinary retention with incomplete bladder emptying: Status: Acute Assessment and plan: He has been on on the higher dose of tamsulosin for 3 days now. Once his bowels are back to baseline, I think it is quite reasonable to give him a voiding trial. Subjective Subjective Interval history since last seen: He is fairly comfortable this morning with no complaints of catheter discomfort He tells me that he still feels that his bowels are not back to baseline for him Exam Narrative Exam Narrative: He does not have a here septic or toxic His vital signs are documented elsewhere His urine is clear in his catheter drainage bag Objective Last Vital Signs Temp 37.3 C 11/05/20 03:56 Pulse 84 11/05/20 03:56 Resp 18 11/05/20 03:56 BP 113/66 11/05/20 03:56 Pulse Ox 91 L 11/05/20 07:39 Laboratory Results - last 24 hr 11/04/20 06:33 Procalcitonin < 0.1
[2020-11-05] MEDS: Furosemide 40 MG TAB PO (08:34)
[2020-11-05] MEDS: Apixaban 5 MG TAB PO (08:34)
[2020-11-05] MEDS: predniSONE 20 MG TAB 40 MG PO (08:34)
[2020-11-05] MEDS: Tamsulosin 0.4 MG CAPCR 0.8 MG PO (08:34)
[2020-11-05] MEDS: LORazepam 1 MG TAB PO (08:35)
[2020-11-05] MEDS: Polyethylene Glycol 3350 17 GM PACKET PO (08:36)
--- NOTE | 2020-11-05 10:12 | PDOC.CMPRO ---
- If Service Date Differs Date of service: 11/05/20 Time of Service: 10:12 Care Management Progress Note S/O: L A:Marc is a 70 year old man admitted on 10/29/20 with exacerbation of COPD P: Marc will likely return home with no new services. He will follow up with his community provider (and/or establish care with a new provider), plan of care and transport home with family. CM will continue to support Marc and assess for discharge planning needs.
--- NOTE | 2020-11-05 10:46 | W.PM.DS.N ---
Date of service: 11/05/20 Time of Service: 10:46 DS: Diagnosis Discharge Diagnosis (1) Chronic respiratory failure with hypercapnia: Status: Chronic Asessment and Plan: - continue Symbicort 80-4.5 dosing, 2 puffs bid - use spacer and rinse mouth after use - continue Spiriva - recommend continue Duonebs 3-4 times per day scheduled - continue albuterol HFA prn - recommend prednisone 40 mg for a total of 7 days, followed by 30 mg for 5 days, 20 mg for 4 days, 10 mg for 4 days, 5 mg for 4 days. -pulmonary appointment in clinic for next month (2) Urinary retention with incomplete bladder emptying: Status: Acute Asessment and Plan: He has been on on the higher dose of tamsulosin for 3 days now. Once his bowels are back to baseline, will give him a voiding trial. (3) Tobacco use disorder: Status: Chronic Asessment and Plan: cessation discussed Discharge Plan Disposition Patient Disposition: HOME W/HOME HEALTH SERVICE Condition: Stable Discharge Details Reason For Visit: Exacerbation COPD, Hypoxemia, Chronic Resp failure Admit Date/Time: 10/31/20 10:12 Admit Provider: Josh Stephenson Attending Provider: Josh Stephenson Primary Care Provider: Unknown,Unknown Hospital Course Hospital Course: This is a 70-year-old gentleman chronically on oxygen at home and chronic respiratory failure well compensated presenting with increasing dyspnea and feeling tight with continued tobacco use at home. He was not clearing well enough during his evaluation [facility] ED and was transferred for observation overnight for continued IV steroids with patient chronically on prednisone daily and more aggressive respiratory treatment. Imaging did not reveal infiltrate. He did not have a fever or elevated WBC. He was placed on doxycycline for possible bronchitis. He remained short of breath and deconditioned. No fevers. He was seen by pulmonology with recommendations. He was weaned off oxygen and as it turns out he had purchased his home oxygen unit from a friend. He did not qualify for home oxygen on an ambulatory pulse oximetry walk test. Home Meds and New Rx's Prescriptions: New budesonide-formoterol [Symbicort] 80-4.5 mcg/actuation Hfa Aerosol Inhaler 2 puff inhalation BID Qty: 1 RF: 0 Spiriva Respimat 2.5 mcg/actuation Mist 2 puff inhalation DAILY Qty: 4 RF: 0 Inhaler, Assist Devices [Pocket Chamber] 1 ea miscellaneous DIRECTED Qty: 0 RF: 0 sertraline 25 mg Tablet 75 mg PO DAILY Qty: 30 RF: 0 Continued albuterol sulfate 90 mcg/actuation Hfa Aerosol Inhaler 2 puff INHALATION DIRECTED PRN (Reason: Wheezing) RF: 0 clonazepam [Klonopin] 0.5 mg Tablet 0.5 mg PO DIRECTED PRNRF: 0 clonazepam [Klonopin] 1 mg Tablet 1 mg PO DIRECTED PRNRF: 0 Eliquis 5 mg Tablet 5 mg PO BID RF: 0 furosemide [Lasix] 40 mg Tablet 40 mg PO DAILY RF: 0 nicotine (polacrilex) 4 mg Lozenge 4 mg buccal DIRECTED PRNRF: 0 terazosin 2 mg Capsule 4 mg PO QHS RF: 0 Changed prednisone 10 mg Tablet 40 mg PO DIRECTED Qty: 60 RF: 0 ipratropium-albuterol 0.5 mg-3 mg(2.5 mg base)/3 mL Solution For Nebulization 3 ml INHALATION QID PRN (Reason: shortness of breath) Qty: 0 RF: 0 tamsulosin 0.4 mg Capsule 0.8 mg PO DAILY Qty: 30 RF: 0 Discontinued Eliquis 5 mg Tablet 5 mg PO BID RF: 0 budesonide-formoterol [Symbicort] 160-4.5 mcg/actuation Hfa Aerosol Inhaler 2 puff INHALATION BID RF: 0 Discharge Instructions Instructions: Urinary Retention in Men (ED), COPD (Chronic Obstructive Pulmonary Disease) (DC) Additional Instructions: COPD Exacerbation - continue Symbicort 80-4.5 dosing, 2 puffs bid - use spacer and rinse mouth after use - continue Spiriva - recommend continue Duonebs 3-4 times per day scheduled - continue albuterol HFA as needed - recommend prednisone 40 mg for a total of 7 days, followed by 30 mg for 5 days, 20 mg for 4 days, 10 mg for 4 days, 5 mg for 4 days. - Follow up in pulmonary clinic for next month Chronic hypoxic and hypercapnic respiratory failure - you had no oxygen requirements on ambulatory walk test so do not need to wear oxygen. - will assess his need for nocturnal NIPPV as an outpatient Current Smoker - would benefit from smoking cessation specialists at [facility] Urinary retention - report symptoms of urinary retention - continue increased dose of flomax (tamsulosin) Stand Alone Forms: Nursing Discharge Form Referrals: Sujey East MD [ [facility] STAFF PHYSICIAN] - 11/20/20 1:00 pm Activity:: Activity as Tolerated Equipment/Supplies:: No Equipment Needed Diet:: As Tolerated Discharge Orders Discharge Orders: Discharge Order (Routine); Ordered 11/05/20 Ordered By: Tracy Peralta DS: Summary Time Spent with Patient providing and/or coordinating discharge services: Greater than 30 minutes Status at Discharge Functional status at discharge: uses cane/walker Overall status at discharge: patient is progressing back to baseline Mental Status: mental status grossly normal Speech and Movement: speech and movement normal Mood: congruent mood Affect: normal affect Exam Const General: cooperative (older appearing than stated age), disheveled, frail appearing and ill appearing chronically Nutritional Appearance: average body habitus Orientation: alert, awake and oriented x3 HENMT Head: normal to inspection, normocephalic and atraumatic Mouth: moist mucous membranes abnormal (dry, no exudates) Resp Effort & Inspection: normal respiratory effort Auscultation: diminished lung sounds and wheezes Cardio Rate: regular rate Rhythm: regular rhythm GI Inspection: normal to inspection Palpation: soft Auscultation: normal bowel sounds Skin General skin exam: no rashes or lesions noted Neuro General: patient alert, patient awake, patient oriented x3 and no focal motor deficits Extrem General: normal to inspection and no pedal edema Psych Mental Status: mental status grossly normal Speech and Movement: speech and movement normal Mood: congruent mood Affect: normal affect DS: Data Vitals/I&O Vitals and I&O: Vital Signs Temperature 36.8 C 11/05/20 08:24 Temperature Source Tympanic 11/05/20 08:24 Pulse 88 11/05/20 08:24 Pulse Rhythm Regular 11/05/20 08:30 Respiratory Rate 20 11/05/20 08:24 Respiratory Effort Pursed Lip 11/05/20 08:30 Respiratory Depth Normal 11/05/20 08:30 Respiratory Pattern Normal 11/05/20 08:30 Blood Pressure 109/64 11/05/20 08:24 Pulse Oximetry 91 L 11/05/20 08:24 Oxygen Delivery Method Room Air 11/05/20 08:24 Oxygen Flow Rate 0 11/05/20 08:24 Pain Level 3 11/05/20 08:24 Comment 11/02/20 00:15 Intake & Output 11/04/20 11/04/20 11/05/20 11:59 23:59 11:59 Intake Total 750 / 1700 950 / 1700 340 / 340 Output Total 600 / 3450 2850 / 3450 450 / 450 Balance 150 / -1750 -1900 / -1750 -110 / -110 Intake: IV 410 / 630 220 / 630 100 / 100 Oral 340 / 1070 730 / 1070 240 / 240 Output: Urine 600 / 3450 2850 / 3450 450 / 450 Other: Urine Color Yellow Pale Pale Urine Appearance Clear Clear Clear Stool Size Large Stool Characteristics Soft Formed Brown Data Completed and Pending Labs on day of discharge: Preliminary micro results at discharge 11/03/20 13:05 Blood Culture - Preliminary Blood NO GROWTH 24 HOURS 11/03/20 12:53 Blood Culture - Preliminary Blood NO GROWTH 24 HOURS [facility] Medical History (Updated 11/04/20 @ 19:03 by Dejah Castro NP) Abdominal pain Blood coagulation disorder BPH without obstruction/lower urinary tract symptoms Chest pain Chronic respiratory failure with hypercapnia Closed fracture of middle and/or proximal phalanx of finger COPD (chronic obstructive pulmonary disease) COPD (chronic obstructive pulmonary disease) with emphysema Depressive disorder Epigastric pain High cholesterol Hypoxemia Impotence Localized edema Low back pain Ophthalmic herpes simplex Pain in joint of left shoulder Palliative care patient Tobacco use disorder Social History Smoking/Tobacco Use Status: Former Tobacco Use Quit Date: 10/26/20 Tobacco: How many years used: 50 Smoking risk assessment performed?: Yes Alcohol Intake: current Alcohol Intake frequency: holidays/special occasions only Alcohol type: beer and hard liquor Drug use: Daily Substance use type: marijuana Details: pt states I try to do it once a day but I haven't been able to lately. Do you feel safe at home: Yes Do you feel safe in your relationship?: Yes
--- NOTE | 2020-11-05 11:43 | PT.INTREAT ---
Date of service: 11/05/20 Time of Service: 10:20 PT Notes Visit Reasons: Exacerbation COPD, Hypoxemia, Chronic Resp failure Inpatient Physical Therapy Treatment Note [facility] Date: 11/05/2020 PRECAUTIONS: Activity as Tolerated SUBJECTIVE: Marc is pleasant stating that he feels a little better today. He reports that he does not walk much at home, but when he does, it's about 10 feet at a time without an assistive device. He reports that he feels more comfortable walking with the 4WW or a grocery cart, that he feels less short of breath, and that he can walk further. Post gait training, patient states see the difference it makes? OBJECTIVE: PAIN: No c/o pain BED MOBILITY/TRANSFERS Supine-sit: I with HOB flat Sit-supine: I with HOB flat Sit-stand: I Stand-sit: I Bed-Chair: I Chair-bed: I GAIT: Patient demonstrates reduced fatigue, anxiety, and shortness of breath with use of 4WW versus no assistive device. Assistive Device: No AD 4WW Weight bearing: Full Assist: I without AD I with 4WW Distance: ~15' x2 without AD 60' with 4WW Deviation: Standing rest x~5 minutes due to significant SOB without use of AD minimal SOB at conclusion with 4WW support ASSESSMENT: Patient demonstrates significant shortness of breath with ambulation without assitive device support. Patient would greatly benefit from 4WW support with ambulation to minimize fatigue, anxiety, and risk for falls, with an improved probability for patient to thrive in his home setting. PLAN: Patient to discharge to home later today, per provider, with PT follow up for safety and continued global conditioning. TREATMENT CODE/TIME: 15 minutes; [id number] (10:15)
[2020-11-05] MEDS: Normal Saline Flush 10 ML SYR IVP (14:42)
--- NOTE | 2020-11-05 15:53 | PDOC.HHF2F ---
Home Health Certification Home Health Certification: 1. Encounter Date and Reason I certify that Marc Mejia was seen by Tracy Peralta on 11/05/20 and that I had a [id number] encounter with this patient that meets the physician face to face encounter requirements. 2. Clinical Findings Supporting Skilled Need and Homebound Status I certify that home health services are medically necessary, include either intermittent intermediate and/or physical/speech therapy, and that this patient is homebound in that absences from the home require considerable and taxing effort and are infrequent or of short duration, or are attributable to the need to receive medical care. [X] (a) Attached documentation from encounter provides clinical findings supporting skilled need and homebound status (including what assistance patient requires to leave the home). The encounter with the patient was in whole, or in part, for the following medical condition, which is the primary reason for home health care: Exacerbation COPD, Hypoxemia, Chronic Resp failure, urinary retention Residential: routine nursing evaluation and medication oversight Physical and Occupational Therapy: routine evaluation and treatment Homebound: patient is unable to safely leave the house unassisted d/t dyspnea 3. Certification and Authentication I certify that I composed the above information based on my clinical judgment relating to this patient's medical condition and, if applicable, clinical findings communicated to me by the NPP or inpatient physician who performed the Home Health Referral. All further orders will be obtained through __(Community Based Physician - PCP)
--- NOTE | 2020-11-05 16:44 | PDOC.CMDIS ---
- If Service Date Differs Date of service: 11/05/20 Time of Service: 16:44 LACE Index Scoring Tool - Questions: Length of Stay (in days): 4 - 6 Acuity (Admit via E.D.?): Yes Comorbidities: Chronic Pulmonary Disease E.D. Visits: 1 - Answers: Total Score: 10 Risk of Readmission: High Risk Care Management Discharge Reason for Hospitalization: COPD exacerbation Discharge Plan: Marc will be discharged home with [facility] home health services for nursing and PT through [facility]. he was provided with a four wheeled walker at discharge by PT. Marc will follow up with his PCP in [place] with plans to transition to a provider in the [facility] area. He will transport home via private vehicle with his . Patient/Family Education Needs: Review of discharge instructions, medications, limitations, follow up plan,Ask Me Three
--- NOTE | 2020-11-08 17:50 | INDS_ITS ---
Date of service: 11/08/20 PT Notes Visit Reasons: Exacerbation COPD, Hypoxemia, Chronic Resp failure Physical Therapy Inpatient Discharge Summary Date: 11/08/20 Dates of service: 11/03/2020 through 12/02/2020 This is a clinical summary of care provided for the duration of dates listed above. No charge was made in the completion of this documentation. Referring Doctor: Tracy Peralta NP PT Orders: PT CONSULT: limited ability to ambulate Precautions: standard Patient Profile/Admitting Diagnosis: Patient admitted for medical management of COPD exacerbation. PT consult requested for assessment of mobility. PMHX: Abdominal pain Blood coagulation disorder BPH without obstruction/lower urinary tract symptoms Chest pain Chronic respiratory failure with hypercapnia Closed fracture of middle and/or proximal phalanx of finger COPD (chronic obstructive pulmonary disease) COPD (chronic obstructive pulmonary disease) with emphysema Depressive disorder Epigastric pain High cholesterol Hypoxemia Impotence Localized edema Low back pain Ophthalmic herpes simplex Pain in joint of left shoulder Tobacco use disorder Social History/Home Situation: Patient lives with his in a second floor apartment. and daughter are present at time of evaluation, and report that he struggles to manage the stairs in/out of home. He leaves the house only to grocery shop, where he uses a motorized cart. States that he walks only from his bed to his computer chair in the apartment, estimating about 10 feet. Generally uses a urinal throughout the day. Although he walks independently, he admits that he walks very little because of his breathing. Equipment Owned/DME: none Subjective: NT. See most recent DAT INSTRUCTOR notes. Objective: General Observation: NT. See most recent DAT INSTRUCTOR notes. Mental Status: NT. See most recent DAT INSTRUCTOR notes. Pain: NT. See most recent DAT INSTRUCTOR notes. ROM: Right Upper Extremity: WFL Left Upper Extremity: WFL Right Lower Extremity: WFL Left Lower Extremity: WFL Strength: Right Upper Extremity: Shoulder flexion 3/5 or greater. Biceps 4/5. Triceps 4- /5. Left Upper Extremity: Shoulder flexion 3/5 or greater. Biceps 4/5. Triceps 4-/5. Right Lower Extremity: Hip flexion 4/5. Quads 4/5. Ankle DF 4+/5. Left Lower Extremity:Hip flexion 4/5. Quads 4/5. Ankle DF 4+/5. Bed Mobility/Transfers: supine-sit: Independent sit-supine: Independent sit-stand: Independent stand-sit: Independent Gait: With the use of a 4 wheeled walker patient, is able to tolerate 100 feet x 2 with just standby assist with full weight bearing on room air saturating at 94%. Stairs: Tolerated 12 x 4 inch and 8 x 6 inch steps while holding onto bilateral rails requiring supervision with 95% oxygen saturation on room air Balance: Static Sitting: normal Dynamic Sitting: normal Static Standing: good Dynamic Standing: good Assessment: Anxiety continues to limit mobility performance despite oxygen saturation and heart rate remaining within acceptable levels. Due to limited activity tolerance, patient will benefit from the use of a 4WW with a seat to maximize mobility ADL performance, reduce fall risk, and increase ability to thrive at home with . Goals: Goals X1 week 1. Supine-Sit : independent MET 2. Sit-Supine: independent MET 3. Sit-Stand : independent MET 4. Stand-Sit: independent MET 5. Bed-Chair : independent MET 6. Chair-Bed : independent MET 7. Gait : independent with rollator walker x 25' MET DISCHARGE RECOMMENDATIONS: Patient will benefit from home health PT services in order to progress mobility level using least restrictive assistive ambulatory device, assess home safety, identify additional equipment needs, and establish a functional maintenance program that will increase ability of patient to remain at home. Patient will highly benefit from the use of a 4 wheeled walker in order to maximize activity tolerance, conserve energy, reduce fall risk and anxiety, and increased ability of patient to thrive at home. TREATMENT CODE/TIME: NC. Thank you for the opportunity to participate in the care of this patient. Samia Elliott PT, DPT, CLT [facility] [place], [place]
== END 2020-11-05 17:24 | disposition home health service (06) | DRG 192 ==
PROVIDERS: Nurse Practitioner Family; Admitting Provider Family Medicine; Visit Provider Family Medicine
DX: J44.0 Chronic obstructive pulmonary disease with (acute) lower respiratory infection (principal); J96.21 Acute and chronic respiratory failure with hypoxia; J96.22 Acute and chronic respiratory failure with hypercapnia; N13.8 Other obstructive and reflux uropathy; D68.59 Other primary thrombophilia; R45.851 Suicidal ideations; J44.1 Chronic obstructive pulmonary disease with (acute) exacerbation; Z99.81 Dependence on supplemental oxygen; N40.0 Benign prostatic hyperplasia without lower urinary tract symptoms; Z79.01 Long term (current) use of anticoagulants; N40.1 Benign prostatic hyperplasia with lower urinary tract symptoms; E78.00 Pure hypercholesterolemia, unspecified; R60.0 Localized edema; M54.5 Low back pain; Z20.822 Contact with and (suspected) exposure to COVID-19; F32.89 Other specified depressive episodes; F41.9 Anxiety disorder, unspecified; J20.9 Acute bronchitis, unspecified; R33.9 Retention of urine, unspecified; R50.9 Fever, unspecified
CPT/HCPCS: 36410; 36415; 76770; 80048; 80053; 82805; 84145; 87040; 87635; 93306; 94618; 94640; 97162; 97530; 99222; 99232; 36600; 71046; 81003; 81015; 83735; 83880; 85025; 86140; 87086; 93005; 93010; 99220; 99226; 99233; 99239; G0378; J1941; J2930; J3490; J7512; J7608; J7613; J7620